=== PATIENT | male | born 1945 | race Caucasian/White ===

== ENCOUNTER → 2018-02-16 08:49 | Outpatient (CLI) | payer BC, MEDICARE, SELFPAY ==
--- NOTE | 2018-02-16 09:07 | XR_ITS ---
XR foot RT min 3V COMPARISON: None HISTORY: Right foot pain TECHNIQUE: AP lateral and oblique views FINDINGS: The tarsal bones metatarsals and phalanges appear intact. There is periarticular calcification or ossification adjacent to the base of the fifth metatarsal due to old injury. There are are arthritic changes at the first tarsometatarsal junction with mild sclerosis of the first and second cuneiform bones. The metatarsals and phalanges all appear intact. The plantar arch is normal. There is a small spur of the calcaneus at insertion of plantar tendon. IMPRESSION: Mild arthritic changes of the first tarsometatarsal articulation, possible posttraumatic changes base of fifth metatarsal, no other significantI abnormality noted.
== END ==
PROVIDERS: PCP Nurse Practitioner Family; Referring Provider Nurse Practitioner Family; Visit Provider Nurse Practitioner Family
DX: M79.671 Pain in right foot (principal)
CPT/HCPCS: 73630

== ENCOUNTER → 2018-04-19 07:29 | Outpatient (CLI) | payer BC, MEDICARE, SELFPAY ==
--- NOTE | 2018-04-19 07:31 | NM_ITS ---
History and Indications: Chest pain, shortness of breath and coronary artery disease Procedure: Patient received a 0.4 mg of intravenous Lexiscan, resting heart rate was 60 beats prominent, resting blood pressure 121/66, with Lexiscan maximum heart rate achieved was 85 bpm which is less than 85% of the maximum predicted heart rate and a blood pressure was 116/59. With Lexiscan patient complained of nausea. Electrocardiogram: Resting echocardiogram showed sinus rhythm, with Lexiscan there is less than 1.[address] segment depression noted from the baseline EKG. The EKG portion of the Lexiscan is nondiagnostic. Cardiac stress and resting SPECT images: Cardiac stress and rest SPECT images were obtained using technetium 99 Myoview 31.1 mCi at stress and 9.8 mCi at rest, gated SPECT further analysis of segmental wall motion and calculation of the ejection fraction also done. Cardiac stress and rest SPECT images show uniform myocardial activity without any segmental perfusion abnormality, computer derived ejection fraction is over 65% with no obvious regional wall motion abnormality, right ventricle is normal size and contractility. Conclusion: 1. The EKG portion of the Lexiscan Myoview is nondiagnostic. 2. No obvious scintigraphic evidence of reversible ischemia seen, computer derived ejection fraction is over 65% with no obvious regional wall motion abnormality. Right ventricle is normal size and contractility. 3. Normal Lexiscan Myoview study.
--- NOTE | 2018-04-19 07:31 | US_ITS ---
US Arterial Ankle Brachial Ind History: ITS.REASON: clauidcation, leg pain, wrist pain bilaterally with numbness and bilateral claudication ORDERING PHYSICIAN: Lalit Riggins MD PATIENT AGE: 72 years TECHNIQUE: Segmental pressures obtained of both right and left leg. These are compared to brachial blood pressure to yield index at each level sampled including summary CALISTA. The data sheets from the procedure are available in PACS FINDINGS Rest study only performed today No prior studies available for comparison. Blood pressures reported are in millimeters mercury. RIGHT LEG CALISTA = 1.1. RIGHT LEG TBI=0.9 Brachial BP: 117 Thigh BP: 143 Calf BP: 158 Ankle PT: 133 Ankle DP : 144 Digit =105 LEFT LEG CALISTA = 1.2 LEFT LEG TBI= 0.9 Brachial BPD: 119 Thigh BP: 131 Calf BP: 144 Ankle PT:138 Ankle DP: 149 Digit = 107 Pulses and waveforms: Normal IMPRESSION: The ABIs as reported above are within normal limits. Waveforms and pulses are also unremarkable.
--- NOTE | 2018-04-19 07:31 | CA_ITS ---
PROCEDURE: 2-D M-mode and color Doppler study INDICATIONS FOR THE TEST: Chest pain X COPD Heart Murmur Tobacco Smoking Palpitations Fatigue Syncope Edema HypertensionXDiabetes Mellitus Rheumatic Fever SOBXDOEXObesity HyperlipidemiaX Family History HD Additional History CAD,H/O CABG,NEGRITO,GAVIN PATIENT INFORMATION HEIGHT: 67 WEIGHT:209 GENDER: Male B/P:111/62 2-D/M-MODE INTERPRETATION: 2-D MEASUREMENTS OBSERVED VALUES IN CMS Right Ventricular Dimension (RVDd) 2.9 Interventricular Septum (Thickness)(IVsd) 1.0 Left Ventricular Internal Dimensions(LVIDd) 5.0 Left Ventricular Posterior Wall (Thickness)(LVPWd) .8 Aortic Root 2.9 Aortic Cusp Separation 1.4 Left Atrial Dimensions (LAD) 3.8 2D 1. Left atrium is qualitatively mildly enlarged, left ventricle is normal size, mild qualitative concentric left ventricular hypertrophy, visually estimated ejection fraction 55% with no obvious regional wall motion abnormality. 2. The right atrium is normal size, right ventricle is mildly enlarged with normal contractility. 3. The aortic valve is minimally thickened and fibrosed. 4. The mitral and tricuspid valve leaflets are minimally thickened. 5. The pulmonic valve is poorly visualized. 6. No significant pericardial effusion noted. DOPPLER INTERROGATION: Doppler interrogation of the aortic, mitral and tricuspid valvular presence of mild mitral and tricuspid regurgitation, tricuspid and jet velocity insufficient for calculation of the right ventricular systolic pressure, grade 1 diastolic dysfunction seen with tissue Doppler evidence of raised left atrial pressure. CONCLUSION: 1. Mildly enlarged left atrium, normal left ventricular size, visually estimated ejection fraction 55% with no obvious regional wall motion abnormality, grade 1 diastolic dysfunction seen with tissue Doppler evidence of raised left atrial pressure. 2. Mild mitral and tricuspid regurgitation 3. No significant pericardial effusion noted.
== END ==
PROVIDERS: Family Provider Nurse Practitioner Family; PCP Nurse Practitioner Family; Visit Provider Internal Medicine
DX: R94.31 Abnormal electrocardiogram [ECG] [EKG] (principal); R06.09 Other forms of dyspnea; I20.9 Angina pectoris, unspecified; E78.5 Hyperlipidemia, unspecified; I73.9 Peripheral vascular disease, unspecified; R20.0 Anesthesia of skin; R20.2 Paresthesia of skin
CPT/HCPCS: 78452; 93017; 93306; 93922; A9502; J2785

== ENCOUNTER → 2018-05-22 10:23 | Outpatient (CLI) | payer BC, MEDICARE, SELFPAY ==
--- NOTE | 2018-05-22 10:27 | MR_ITS ---
MR head/brain wo con Ordering Physician: Erika Sesay Patient Age: 72 years: Male HISTORY: ITS.REASON: HEMIPLEGIA Unable to control legs and move them at times Dizzy. Symptoms four months unable to control legs TECHNIQUE: Noncontrast MR brain : Precontrast Multiplanar FLAIR, T1, T2 weighted images along with axial diffusion/ADC imaging performed on 1.5 T. Siemens, MRI. . COMPARISON :None CT head without contrast FINDINGS Diffusion images reveal no acute or recent infarct/or ischemia. No territorial infarct. No mass lesions . Mild diffuse cerebral atrophy. Typical of age. Numerous scattered high signal deep white matter foci more numerous towards a follow-up region region. Tend to be be more subcortical distribution within centrum semiovale deep white matter. The largest of these deep white matter areas measuring 8 mm just superior to the basal ganglia lateral aspect fernandes radiata. Axial image 15 Posterior fossa unremarkable. CP angles are clear. Cranial nerve VII and VIII appear normal passing to respective IACs on this survey study. Mastoid air cells well-developed and clear. The cranial cervical junction appears satisfactory. There is spondylosis narrowing the spinal canal C2/3.. May want to consider performing a MR C-spine if any symptoms are symptoms referable to this region . Sella and suprasellar region ventricles and basal cisterns appear satisfactory. The minor dilatation lateral ventricles reflecting the cerebral atrophy. Prominent paranasal sinus disease. Left maxillary sinus. Near opacification with air-fluid level Right maxillary sinus with diffuse mucosal thickening with moderate air-fluid level. Frontal sinuses are clear. Mild mucosal thickening ethmoid air cells right more so than left. Sphenoid sinuses clear.. Deviation nasal septum convex to the right. Prominent engorgement of left nasal turbinates on this study IMPRESSION: 1. Chronic small vessel deep white matter ischemic gliotic changes. Scattered high signal foci most numerous at the subcortical regions towards follow-up 2. diffuse cerebral atrophy age-appropriate. 3. No territorial infarct. No mass lesion. No acute findings 4. Bilateral acute maxillary sinusitis. Air-fluid levels bilaterally. Near opacification left maxillary sinus . Deviation nasal septum to the right, engorgement of left nasal turbinates 5. cervical spondylosis & anatomy appears to yield spinal stenosis C2/3 & C3 level. This region incompletely imaged. If symptoms referable to the C-spine may want to consider MR C-spine to further evaluate
== END ==
PROVIDERS: Family Provider Nurse Practitioner Family; PCP Nurse Practitioner Family; Visit Provider Nurse Practitioner Family
DX: G81.94 Hemiplegia, unspecified affecting left nondominant side (principal)
CPT/HCPCS: 70551

== ENCOUNTER 2018-06-25 10:00 | Outpatient (RCR) | payer BC, MEDICARE, SELFPAY | END 2018-07-22 11:37 | disposition home or self-care (01) | LOC: PT 10:00 | PROVIDERS: Visit Provider Nurse Practitioner Family | DX: R29.898 Other symptoms and signs involving the musculoskeletal system (principal); M54.12 Radiculopathy, cervical region | CPT/HCPCS: 97010; 97012; 97014; 97110; 97140; 97163; G0283 ==

== ENCOUNTER → 2018-09-09 07:14 | Outpatient (CLI) | payer BC, MEDICARE, SELFPAY ==
[2018-09-09 08:39] LABS: Blood Urea Nitrogen 28 mg/dL (7-18); Creatinine,Serum 1.39 mg/dL (0.70-1.30); Estimated Glomerular Filt Rate 51 ml/min (>60); GFR (African American) 61 ML/MIN (>60)
== END ==
PROVIDERS: Visit Provider Nurse Practitioner Family
DX: R94.4 Abnormal results of kidney function studies (principal)
CPT/HCPCS: 36415; 82565; 84520

== ENCOUNTER → 2018-09-10 08:57 | Outpatient (CLI) | payer BC, MEDICARE, SELFPAY ==
--- NOTE | 2018-09-10 09:16 | CT_ITS ---
CT abdomen pelvis w con CLINICAL INDICATION: Left flank and left lower quadrant pain ITS.REASON: ABD PAIN,LT LOWER QUAD PAIN ORDERING PHYSICIAN: Erika Sesay PATIENT AGE: 72 years COMPARISON: None TECHNIQUE: Axial images obtained with sagittal and coronal reformats. All CT scans at the facility use one or more dose reduction, viz: automated exposure control, ma/kV adjustment per patient size (including targeted exams where dose is matched to indication, i.e. head), or iterative reconstruction technique. PROCEDURE: Oral Contrast: None IV Contrast: 75 mL's of Isovue 370. FINDINGS: Lower thorax: No acute finding . There has been a prior CABG with calcification of the yocha dehe coronary arteries and the bypass vessels. No focal liver lesion. No calcified gallstone. The spleen, adrenal glands, and pancreas have an unremarkable appearance. There is a nonobstructing 5 mm stone in the lower pole the left kidney, 8 mm stone in the upper pole the left kidney nonobstructing, 3 mm nonobstructing stone mid polar region right kidney. There is a 1.3 cm right renal cyst. No hydronephrosis. No ureteral calculi. Unremarkable appendix. There is diverticulosis of the descending and sigmoid colon but no evidence of diverticulitis. No acute bony anomalies. No pelvic mass or abnormal fluid collection or focal inflammatory change of the pelvis. IMPRESSION: 1. No acute abdominal or pelvic findings. 2. Nonobstructing bilateral renal calculi 3. Diverticulosis of the colon. No evidence of diverticulitis
== END ==
PROVIDERS: PCP Nurse Practitioner Family; Visit Provider Nurse Practitioner Family
DX: R10.32 Left lower quadrant pain (principal)
CPT/HCPCS: 74177; Q9967

== ENCOUNTER → 2018-09-16 17:16 | Outpatient (CLI) | payer BC, MEDICARE, SELFPAY ==
--- NOTE | 2018-09-16 17:29 | XR_ITS ---
XR ribs RT 2V HISTORY: Pain ITS.REASON: sprain of ribs ORDERING PHYSICIAN: Erika Sesay PATIENT AGE: 72 years Comparison: None FINDINGS: Multiple views of the right ribs were obtained. No fracture or dislocation. No lytic or blastic change. IMPRESSION: Negative right RIBS. If pain persists, consider follow-up exam in 7-[address] with 3-D reformats.
--- NOTE | 2018-09-16 17:29 | XR_ITS ---
XR ribs LT 2V HISTORY: Rib pain ITS.REASON: sprain of ribs ORDERING PHYSICIAN: Erika Sesay PATIENT AGE: 72 years Comparison: None FINDINGS: Multiple views of the Left ribs were obtained. No fracture or dislocation. No lytic or blastic change. IMPRESSION: Negative RIBS. If pain persists, consider follow-up exam in 7-[address] with 3-D reformats.
--- NOTE | 2018-09-16 17:29 | XR_ITS ---
XR chest 2V HISTORY: Left-sided chest pain, heart disease ITS.REASON: sprain of ribs ORDERING PHYSICIAN: Erika Sesay PATIENT AGE: 72 years COMPARISON: 05/12/2017 FINDINGS: There has been a prior CABG. Chronic changes are present in the left lung base. No acute infiltrate. Degenerative changes are present in the right AC joint and thoracic spine. On the lateral view and one similar nodule overlies the superior aspect of the T6 vertebral body not readily apparent on the frontal view. IMPRESSION: 1. No acute finding. 2. 1 cm nodule overlies the superior aspect of T6. This is indeterminate. Chest CT may be of further value. Follow-up is recommended
[2018-09-16 17:44] LABS: Basophils # 0.1 K/mm3 (0-0.2); Basophils % 0.8 % (0.1-2.0); Eosinophils # 0.2 K/mm3 (0.0-0.4); Eosinophils % 3.1 % (0.1-12.0); Hematocrit 40.5 % (42.0-52.0); Hemoglobin 13.2 g/dL (14.1-18.0); Lymphocytes # 1.3 K/mm3 (0.7-4.5); Lymphocytes % 18.1 % (10-50); Mean Corpuscular HGB Conc 32.6 g/dL (31.8-35.4); Mean Platelet Volume 7.7 fl (7.4-10.4); Monocytes # 0.3 K/mm3 (0.1-1.0); Monocytes % 4.9 % (1.7-9.3); Neutrophils % 73.1 % (37.0-80.0); Platelet Count 272 K/mm3 (142-424); Red Blood Count 4.55 M/mm3 (4.60-6.20); White Blood Count 6.9 K/mm3 (4.8-10.8)
[2018-09-16 19:33] LABS: Alanine Aminotransferase 21 U/L (12-78); Albumin Level 4.1 gm/dL (3.4-5.0); Albumin/Globulin Ratio 1.6 (1.1-1.8); Alkaline Phosphatase 61 U/L (46-116); Aspartate Amino Transferase 11 U/L (15-37); Bilirubin,Total 0.3 mg/dL (0.2-1.0); Blood Urea Nitrogen 28 mg/dL (7-18); Calcium 9.3 mg/dL (8.5-10.1); Carbon Dioxide 26 mmol/L (21.0-32.0); Chloride 107 mmol/L (98-107); Creatinine,Serum 1.24 mg/dL (0.70-1.30); Estimated Glomerular Filt Rate 58 ml/min (>60); GFR (African American) 70 ML/MIN (>60); Globulin 2.6 gm/dl (1.3-3.2); Glucose 109 mg/dL (74-106); Prostate Specific Ag Screen 1.4 ng/mL (0.0-4.0); Sodium 144 mmol/L (136-145); Total Protein,Serum 6.7 gm/dL (6.4-8.2)
== END ==
PROVIDERS: Visit Provider Nurse Practitioner Family
DX: R10.32 Left lower quadrant pain (principal); N40.1 Benign prostatic hyperplasia with lower urinary tract symptoms
CPT/HCPCS: 36415; 71046; 71100; 80053; 85025; G0103

== ENCOUNTER 2019-02-11 07:59 | Day surgery (SDC) | payer BC, SELFPAY ==
[2019-02-10 09:12] VITALS: BMI 31.6
[2019-02-11 08:19] VITALS: BP 127/62; PULSE 56; RESP 18; TEMP 36.4; O2SAT 96
--- NOTE | 2019-02-11 08:37 | P.PN_ITS ---
[facility] Anesthesia Checklist - Patient Identification Patient Identification: Arm Band - Structural Data Admitted From: Home Planned Operative Procedure/s: cystoscopy with bladder biopsy Consent for Planned Operative Procedure(s) Verified: Yes Verified Documents: Surgical Consent, History and Physical - NPO Status Verified Time NPO: 00:00 - Additional verifications Anesthesia Reactions: No - Airway Assessment C-Spine Mobility Assessed: Yes (mp2) TMJ Mobility Assessed: Yes Dentition: Good Dentition - Neurological Assessment Level of Consciousness: Awake, Alert - Anesthesia Plan Anesthesia Risk discussed: Yes Anesthesia Plan: Verified ASA Class: III Anesthesia Type: MAC [facility] History I have reviewed the patient's past medical history: Yes Medical History: Reports:: Carotid Stenosis, Coronary Artery Disease, Gastroesophageal Reflux Disease(GERD), Hyperlipidemia, Hypertension, Kidney Stones, Transient Ischemic Attacks (TIA) Denies:: Cancer, Diabetes Mellitus Type 1, Diabetes Mellitus Type 2, Internal Pacemaker, MRSA, Seizures *Have you ever received a pneumonia vaccine?: Yes *Have you received a flu vaccine this season?: Yes Other Medical History: Reports: Arthritis. Denies: Blood Transfusion Reaction Laterality Cases: Left: Arthroscopy Shoulder Other Surgeries: Yes: Angioplasty, CABG, Colon Resection, Coronary Stent, Other (acdf). No: Pacemaker Amputation: No Fractures: No - *Social History Educational Level: Completed High School Smoking Status: Never smoker Alcohol Intake: never Alcohol Intake Frequency:: other Substance Use Type: denies use *Occupational Status:: employed Housing: house Household Members: spouse *Travel in the last 8 weeks: None - Psychiatric History Expresses thoughts of harming self/others: None Suicide Plan Description: No Plan Family Hx:: Coronary Artery Disease
[2019-02-11 10:45] VITALS: BP 113/65; PULSE 55; RESP 18; TEMP 36.4; O2SAT 95
[2019-02-11 11:00] VITALS: BP 118/59; PULSE 58; RESP 16; TEMP 36.4; O2SAT 96
[2019-02-11 11:15] VITALS: BP 137/87; PULSE 55; RESP 16; TEMP 36.4; O2SAT 96
[2019-02-11 11:29] VITALS: BP 132/80; PULSE 60; RESP 16; TEMP 36.6; O2SAT 97
--- NOTE | 2019-02-11 13:42 | HMH.OPNOTE ---
Date of procedure: 02/11/19 Pre-op Diagnosis:: Gross painless hematuria Post-op Diagnosis:: Hematuria likely secondary to BPH Procedure performed:: Cystoscopy Surgeon:: Que Andino MD CASHIER GENERAL:: Mikey Aj Anesthesia: MAC Estimated blood loss (mL): 0 Clinical Note:: Patient with history of urolithiasis. He had episode of gross painless hematuria. He had a CT scan which showed some small bilateral renal stones. He does have a previous significant smoking history. He is also on Plavix. Resents today for cystoscopy for further evaluation of his hematuria. Operative findings:: Significant prostate enlargement with trilobar hypertrophy and moderate median lobe. No evidence of bladder tumor. Operative note:: After adequate general anesthesia he was carefully placed in the lithotomy position. He was prepped and draped in standard manner. He had very mild meatal stenosis. The 22 [place] cystoscopy sheath was manipulated through this with care. No formal dilation was performed. The remainder of the urethra and prostatic were unremarkable other than significant trilobar hypertrophy and a large median lobe. The prostatic urethra was also quite vascular. The bladder was inspected entirely. There was mild trabeculations. Ureteral orifice ease were situated in the normal position and effluxed clear urine. The bladder was inspected with both 30 and 70 degree lenses. There was no evidence of bladder tumors. It was withdrawn. Xylocaine jelly was instilled in the urethra. Likely his source of bleeding was prostatic as well as combination with anticoagulation therapy. Condition: stable Disposition: same day Specimens:: None Complications:: None. I have placed him on finasteride 5 mg/day. He will follow-up in 2 months.
--- NOTE | 2019-02-11 13:46 | P.OP_ITS ---
Date of procedure: 02/11/19 Pre-op Diagnosis:: Gross painless hematuria Post-op Diagnosis:: Hematuria likely secondary to BPH Procedure performed:: Cystoscopy Surgeon:: Que Andino MD PARK KEEPER:: Mikey Aj Anesthesia: MAC Estimated blood loss (mL): 0 Clinical Note:: Patient with history of urolithiasis. He had episode of gross painless hematur ia. He had a CT scan which showed some small bilateral renal stones. He does have a previous significant smoking history. He is also on Plavix. Resents today for cystoscopy for further evaluation of his hematuria. Operative findings:: Significant prostate enlargement with trilobar hypertrophy and moderate median lobe. No evidence of bladder tumor. Operative note:: After adequate general anesthesia he was carefully placed in the lithotomy position. He was prepped and draped in standard manner. He had very mild meatal stenosis. The 22 [place] cystoscopy sheath was manipulated through this with care. No formal dilation was performed. The remainder of the urethra and prostatic were unremarkable other than significant trilobar hypertrophy and a large median lobe. The prostatic urethra was also quite vascular. The bladder was inspected entirely. There was mild trabeculations. Ureteral orifice ease were situated in the normal position and effluxed clear urine. The bladder was inspected with both 30 and 70 degree lenses. There was no evidence of bladder tumors. It was withdrawn. Xylocaine jelly was instilled in the urethra. Likely his source of bleeding was prostatic as well as combination with anticoagulation therapy. Condition: stable Disposition: same day Specimens:: None Complications:: None. I have placed him on finasteride 5 mg/day. He will follow-up in 2 months.
[2019-02-11 14:55] VITALS: TEMP 43
== END 2019-02-11 11:29 | disposition home or self-care (01) ==
LOC: OR 08:00
PROVIDERS: PCP Nurse Practitioner Family; Visit Provider Urology
PROC: 0TBB8ZX Excision of Bladder, Via Natural or Artificial Opening Endoscopic, Diagnostic (ICD-10-PCS; CPT 52204; principal; 2019-02-11 09:45)
DX: R31.0 Gross hematuria (principal); Z87.442 Personal history of urinary calculi; Z79.01 Long term (current) use of anticoagulants; N40.0 Benign prostatic hyperplasia without lower urinary tract symptoms; N35.911 Unspecified urethral stricture, male, meatal
CPT/HCPCS: 52000; 96374

== ENCOUNTER → 2019-05-03 11:55 | Outpatient (CLI) | payer BC, SELFPAY ==
--- NOTE | 2019-05-03 12:08 | XR_ITS ---
PROCEDURE: XR FOOT RT 2V CLINICAL INDICATION: PAIN Bruising and pain COMPARISON: No exams were available for comparison FINDINGS: There is a nondisplaced oblique fracture involving the mid distal shaft of the 5th metatarsal. Mild chondrocalcinosis of the 2nd metatarsophalangeal joint. Mild osteoarthritic change of the 1st metatarsophalangeal joint and tarsal metatarsal joint. There is some minimal plantar fascia calcifications nonspecific but could be seen with plantar fasciitis. There is a prominent os cuboid IMPRESSION: Nondisplaced oblique fracture 5th metatarsal Degenerative changes Dictated by: Bebeto Almanza MD 05/03/2019 12:27 Signed by: <Electronically signed by Bebeto Almanza MD in [place]> 05/03/2019 12:27
== END ==
PROVIDERS: PCP Nurse Practitioner Family; Referring Provider Nurse Practitioner Family; Visit Provider Nurse Practitioner Family
DX: M79.671 Pain in right foot (principal)
CPT/HCPCS: 73620

== ENCOUNTER → 2019-05-27 15:02 | Outpatient (CLI) | payer BC, SELFPAY ==
--- NOTE | 2019-05-27 15:06 | XR_ITS ---
PROCEDURE: XR FOOT WT BEARING RT 3V CLINICAL INDICATION: foot pain Follow-up fracture COMPARISON: [id number] XR foot RT min 3V from 02/16/2018 XR FOOT RT 2V from 05/03/2019 FINDINGS: There is a cast in place. Nondisplaced oblique fracture once again noted involving the mid distal aspect of the 5th metatarsal. Fracture line is still visible. Good alignment. There are degenerative changes of the midfoot Other findings:None. IMPRESSION: Overall no change nondisplaced oblique fracture of the mid to distal aspect of the 5th metatarsal Dictated by: Bebeto Almanza MD 05/27/2019 16:18 Electronically signed by Bebeto Almanza MD in [place] 05/27/2019 16:18
== END ==
PROVIDERS: PCP Family Medicine; Visit Provider Podiatrist
DX: S92.354D Nondisplaced fracture of fifth metatarsal bone, right foot, subsequent encounter for fracture with routine healing (principal)
CPT/HCPCS: 73630

== ENCOUNTER → 2019-06-17 14:23 | Outpatient (CLI) | payer BC, SELFPAY ==
--- NOTE | 2019-06-17 14:28 | XR_ITS ---
PROCEDURE: XR FOOT WT BEARING RT 3V CLINICAL INDICATION: Fracture follow up COMPARISON: [id number] XR foot RT min 3V from 02/16/2018 XR FOOT RT 2V from 05/03/2019 XR FOOT WT BEARING RT 3V from 05/27/2019 FINDINGS: Nondisplaced oblique fracture once again noted involving the mid distal shaft of the 5th metatarsal. Fracture line is still visible. There may be some mild callus formation medially. There are mild degenerative changes of the midfoot. Other findings:None. IMPRESSION: The nondisplaced oblique fracture of the 5th metatarsal is once again noted. There may be some callus formation developing medially Dictated by: Bebeto Almanza MD 06/17/2019 15:57 Electronically signed by Bebeto Almanza MD in [place] 06/17/2019 15:57
== END ==
PROVIDERS: PCP Nurse Practitioner Family; Visit Provider Podiatrist
DX: S92.354A Nondisplaced fracture of fifth metatarsal bone, right foot, initial encounter for closed fracture (principal)
CPT/HCPCS: 73630

== ENCOUNTER → 2019-07-02 09:37 | Outpatient (CLI) | payer BC, SELFPAY ==
--- NOTE | 2019-07-02 09:41 | XR_ITS ---
PROCEDURE: XR FOOT WT BEARING RT 3V CLINICAL INDICATION: fracture follow up COMPARISON: [id number] XR foot RT min 3V from 02/16/2018 XR FOOT RT 2V from 05/03/2019 XR FOOT WT BEARING RT 3V from 05/27/2019 XR FOOT WT BEARING RT 3V from 06/17/2019 FINDINGS: Nondisplaced oblique fracture once again noted involving the mid distal aspect of the shaft of the 5th metatarsal. The fracture line appears somewhat less distinct and may be due to early healing. Fracture remains nondisplaced IMPRESSION: No significant change nondisplaced 5th metatarsal fracture Dictated by: Bebeto Almanza MD 07/02/2019 14:12 Electronically signed by Bebeto Almanza MD in [place] 07/02/2019 14:12
== END ==
PROVIDERS: PCP Nurse Practitioner Family; Visit Provider Podiatrist
DX: S92.354A Nondisplaced fracture of fifth metatarsal bone, right foot, initial encounter for closed fracture (principal)
CPT/HCPCS: 73630

== ENCOUNTER → 2019-07-22 14:41 | Outpatient (CLI) | payer BC, SELFPAY ==
--- NOTE | 2019-07-22 14:44 | XR_ITS ---
PROCEDURE: XR FOOT WT BEARING RT 3V CLINICAL INDICATION: fracture follow up Follow-up fracture COMPARISON: XR FOOT RT 2V from 05/03/2019 XR FOOT WT BEARING RT 3V from 05/27/2019 XR FOOT WT BEARING RT 3V from 06/17/2019 XR FOOT WT BEARING RT 3V from 07/02/2019 FINDINGS: Healing nondisplaced oblique fracture involves the mid distal shaft of the 5th metatarsal. The fracture line is somewhat less distinct compared to the previous study but is still visible. Incidental note made of degenerative changes of the foot Other findings:None. IMPRESSION: Healing nondisplaced oblique fracture mid and distal shaft of the 5th metatarsal Dictated by: Bebeto Almanza MD 07/22/2019 16:28 Electronically signed by Bebeto Almanza MD in [place] 07/22/2019 16:28
== END ==
PROVIDERS: PCP Family Medicine; Visit Provider Podiatrist
DX: S92.354D Nondisplaced fracture of fifth metatarsal bone, right foot, subsequent encounter for fracture with routine healing (principal)
CPT/HCPCS: 73630

== ENCOUNTER → 2019-12-25 12:38 | Outpatient (CLI) | payer BC, MEDICARE, SELFPAY ==
--- NOTE | 2019-12-25 12:43 | MR_ITS ---
PROCEDURE: MR HEAD/BRAIN WO/W CON CLINICAL INDICATION: NEW DAILY PERSISTENT HEADACHE Left-sided headache, constant headache COMPARISON: BRAINWO MR head/brain wo con from 05/22/2018 TECHNIQUE: Routine multiplanar multi echo sequences are performed without and with gadolinium enhancement. FINDINGS: There is mild generalized atrophy. Scattered periventricular and subcortical T2 white matter hyperintensities are present which does not appear significantly changed. No midline shift or mass effect. No evidence of acute infarction or intracranial hemorrhage. No enhancing lesions are evident. The cerebellopontine angles, cerebellum, and brainstem are unremarkable. No mastoid effusion or sinus air-fluid level. The the pituitary, optic chiasm, corpus callosum, and craniocervical junction have an unremarkable appearance. There is spondylosis of the cervical spine with postsurgical changes from anterior cervical disc fusion at C4 and C5. There is mild bulging disc at C3-C4 with narrowing of the canal. IMPRESSION: No acute intracranial findings with no significant change compared to the previous exam. Postsurgical and degenerative changes of the cervical spine Dictated by: Bebeto Almanza MD 12/27/2019 09:38 Electronically signed by Bebeto Almanza MD in [place] 12/27/2019 09:38
== END ==
PROVIDERS: PCP Family Medicine; Visit Provider Nurse Practitioner Family
DX: G44.52 New daily persistent headache (NDPH) (principal)
CPT/HCPCS: 70553; A9576

== ENCOUNTER → 2020-01-14 09:27 | Outpatient (CLI) | payer OTHER, BC, MEDICARE, SELFPAY ==
--- NOTE | 2020-01-14 09:34 | XR_ITS ---
PROCEDURE: XR SHOULDER RT MIN 2V CLINICAL INDICATION: right shoulder pain COMPARISON: No exams were available for comparison FINDINGS: There are moderate osteoarthritic changes of the acromioclavicular joint with some surrounding periarticular calcification/chondrocalcinosis. There are mild osteoarthritic changes the glenohumeral joint also with some mild chondrocalcinosis. A small calcific density is present inferior to the glenoid etiology undetermined. No acute fracture. 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
== END ==
PROVIDERS: PCP Nurse Practitioner Family; Visit Provider Orthopaedic Surgery
DX: M25.511 Pain in right shoulder (principal)
CPT/HCPCS: 73030

== ENCOUNTER 2020-01-30 11:00 | Outpatient (RCR) | payer BC, MEDICARE, SELFPAY | END 2020-02-25 08:40 | disposition home or self-care (01) | LOC: PT.CARL 11:00 | PROVIDERS: PCP Nurse Practitioner Family; Visit Provider Nurse Practitioner Family | DX: M54.2 Cervicalgia (principal) | CPT/HCPCS: 97110; 97140; 97163 ==

== ENCOUNTER 2020-07-26 09:00 | Outpatient (RCR) | payer MEDICARE, BC, SELFPAY | END 2020-08-12 16:28 | disposition home or self-care (01) | LOC: PT.CARL 09:00 | PROVIDERS: PCP Nurse Practitioner Family; Visit Provider Nurse Practitioner Family | DX: M54.2 Cervicalgia (principal) | CPT/HCPCS: 97010; 97014; 97110; 97140; 97163; G0283 ==

== ENCOUNTER 2021-04-24 16:41 | Emergency (ER) | payer MEDICARE, BC, SELFPAY ==
[2021-04-24 18:00] VITALS: BP 112/65; PULSE 68; RESP 18; TEMP 37; O2SAT 98; BMI 31.0
--- NOTE | 2021-04-24 18:22 | HMH.EDUTC ---
[facility] [place] Disposition Clinical Impression: Exposure to COVID-19 virus Disposition: Home, Self-Care Condition on Discharge: Good Instructions: DI for COVID-19 (Suspected or Confirmed ), COVID-19: Protecting Yourself When You're at High Risk, Preventing the Spread of Coronavirus Discharge Instructions Additional Instructions: covid swab was sent to lab, call later today for results. self isolate until test results are known to be negative Referrals: Erika Sesay [Primary Care Provider] - Time of Disposition: 18:25 Medical Decision Making - [place] Inquiry Pt receiving controlled substance: No Vital Signs: 04/24/21 18:00 Temperature 98.6 F Temperature Source Oral Pulse Rate [Right Brachial] 68 Respiratory Rate 18 Blood Pressure [Right Arm] 112/65 Blood Pressure Mean [Right Arm] 80 Blood Pressure Source [Right Arm] Automatic Cuff Blood Pressure Position [Right Arm] Sitting 02 Sat by Pulse Oximetry 98 Oxygen Delivery Method Room Air Orders (Tests/Meds): ORDERS Category Date Time Status Covid-19 Nasal PCR ([facility]) Routine Lab 04/24/21 18:02 Received [facility] [place] HPI - General Chief complaint: Urgent [facility] Stated complaint: covid test Time Seen by Provider: 04/24/21 18:23 Mode of Arrival: Ambulatory Source of Information: Patient Limitations: No Limitations Description of Symptoms (Recalled from Triage Doc. by RN): COVID TEST D/T EXPOSURE HEENT Symptoms (Recalled from RN notes): No Resp Symptoms (Recalled from RN notes): No Skin Symptoms (Recalled from RN notes): No MS Symptoms (Recalled from RN notes): No Functional Status (Recalled from RN notes): WNL - History of Present Illness Provider Complaint: 75 yr old male presents for covid test, was exposed last pm no symptoms - Related Data Home Medications Medication Instructions Recorded Confirmed clopidogrel 75 mg tablet 75 mg PO DAILY tab 10/22/17 01/14/20 multivitamin 1 tab PO QAM 10/22/17 01/14/20 naproxen sodium 220 mg tablet 220 mg PO Q12H 10/22/17 01/14/20 omeprazole 40 mg capsule,delayed 40 mg PO ONCE 10/22/17 01/14/20 release tamsulosin 0.4 mg capsule 0.4 mg PO DAILY 10/22/17 01/14/20 fenofibrate nanocrystallized 48 mg 48 mg PO DAILY tab 01/29/18 01/14/20 tablet metoprolol tartrate 25 mg tablet 12.5 mg PO BID tab 01/29/18 01/14/20 acetaminophen 500 mg tablet 500 mg PO BID PRN tab 04/16/18 01/14/20 aspirin 81 mg tablet,delayed 81 mg PO DAILY tab 04/16/18 01/14/20 release fluticasone propionate 50 50 mcg INTRANASAL DAILY g 04/16/18 01/14/20 mcg/actuation nasal spray,suspension rosuvastatin 20 mg tablet 20 mg PO DAILY tab 04/16/18 01/14/20 finasteride 5 mg tablet 5 mg PO DAILY #90 tab 05/06/19 01/14/20 Allergies Allergy/AdvReac Type Severity Reaction Status Date / Time clarithromycin Allergy Unknown Verified 01/14/20 10:29 [CLARITHROMYCIN] morphine [MORPHINE] Allergy Unknown Verified 01/14/20 10:29 sulfamethoxazole Allergy Unknown Verified 01/14/20 10:29 [From BACTRIM] trimethoprim [From BACTRIM] Allergy Unknown Verified 01/14/20 10:29 - Worker's Comp Is this a Worker's Comp case?: No [facility] History - Hepatitis A Screen Drug use history?: No High risk sexual behaviors?: No History of sexually transmitted infection?: No Currently employed?: No Childcare worker?: No Do you have indoor plumbing?: Yes Do you have electricity?: Yes Attestation statement:: This patient has been screened for Hepatitis A risk factors. I have reviewed the patient's past medical history: Yes Medical History: Reports:: Aneurysm, Atherosclerotic Heart Disease, Carotid Stenosis, Coronary Artery Disease, Gastroesophageal Reflux Disease(GERD), Hyperlipidemia, Hypertension, Kidney Stones, Transient Ischemic Attacks (TIA) Denies:: Cancer, Diabetes Mellitus Type 1, Diabetes Mellitus Type 2, Internal Pacemaker, Lung Disease, MRSA, Seizures Other Medical History: Reports: Arthritis. Denies: Blood Transfusion Reaction
[2021-04-24 18:26] VITALS: BP 112/65; PULSE 68; RESP 18; TEMP 37; O2SAT 98
== END 2021-04-24 18:34 | disposition home or self-care (01) ==
PROVIDERS: Emergency Provider Nurse Practitioner Family; PCP Nurse Practitioner Family
DX: Z20.822 Contact with and (suspected) exposure to COVID-19 (principal); I25.10 Atherosclerotic heart disease of native coronary artery without angina pectoris; K21.9 Gastro-esophageal reflux disease without esophagitis; Z88.2 Allergy status to sulfonamides; Z88.5 Allergy status to narcotic agent; Z79.899 Other long term (current) drug therapy
CPT/HCPCS: G0463; 99202; U0003

== ENCOUNTER → 2021-05-05 12:13 | Outpatient (CLI) | payer MEDICARE, BC, SELFPAY ==
[2021-05-05] VITALS (10 sets, daily range): BP systolic 113–136; BP diastolic 57–74; PULSE 48–63; RESP 16–18; TEMP 36.2–36.9; O2SAT 95–97
== END ==
PROVIDERS: PCP Nurse Practitioner Family; Visit Provider Nurse Practitioner Family
DX: U07.1 COVID-19 (principal)
CPT/HCPCS: 96365

== ENCOUNTER 2023-05-13 22:50 | Inpatient (IN) | payer MEDICARE, BC, SELFPAY ==
[2023-05-13 22:50] VITALS: BP 146/79; PULSE 94; RESP 19; TEMP 38.8; O2SAT 97; BMI 29.7
--- NOTE | 2023-05-13 22:55 | XR_ITS ---
PROCEDURE INFORMATION: Exam: XR Chest Exam date and time: 05/13/2023 10:53 PM Age: 77 years old Clinical indication: Pain; Chest pressure; Additional info: Cp TECHNIQUE: Imaging protocol: Radiologic exam of the chest. Views: 1 view. COMPARISON: CR CXR2V XR chest 2V 09/16/2018 5:35 PM FINDINGS: Lungs: Low lung volumes without definite focal airspace consolidation. Pleural spaces: No pleural effusion. No pneumothorax. Heart/Mediastinum: Stable cardiomediastinal silhouette. Bones/joints: Median sternotomy. Metallic plate in the cervical spine. Rotator cuff repair on the left. IMPRESSION: Low lung volumes without definite focal airspace consolidation.
[2023-05-13 23:00] VITALS: BP 148/74; PULSE 97; RESP 22; O2SAT 96
--- NOTE | 2023-05-13 23:18 | ECG_ITS ---
APPROVED REPORT Exam: Resting ECG HR:95 bpm ECG Measurements Heart Rate 95 AXES AR 204 P 35 QRSd 118 QRS -1 QT 348 T 66 QTc 401 Conclusion SINUS RHYTHM INDETERMINATE AXIS PATTERN CONSISTENT WITH PULMONARY DISEASE MODERATE INTRAVENTRICULAR CONDUCTION DELAY [110+ ms QRS DURATION] MODERATE ST DEPRESSION [0.05+ mV ST DEPRESSION] ABNORMAL ECG UNCONFIRMED REPORT Electronically signed by : Mikey Wallace MD 05/14/2023 07:09:35
--- NOTE | 2023-05-13 23:23 | PC.NURSE ---
Dr. Riggins paged and on phone with Dr. Lainez at this time
[2023-05-13 23:30] VITALS: BP 146/78; PULSE 103; RESP 22; O2SAT 98
[2023-05-13 23:30] LABS: Chloride 106 mmol/L (98-107)
[2023-05-13 23:31] LABS: Sodium 141 mmol/L (136-145)
[2023-05-13 23:32] LABS: Basophils % 0.3 % (0.1-2.0); Eosinophils # 0.2 K/mm3 (0.0-0.4); Eosinophils % 1.8 % (0.1-12.0); Hematocrit 42.3 % (42.0-52.0); Hemoglobin 13.2 g/dL (14.1-18.0); Lymphocytes # 0.7 K/mm3 (0.7-4.5); Lymphocytes % 5.7 % (10-50); Mean Corpuscular HGB Conc 31.3 g/dL (31.8-35.4); Mean Corpuscular Hemoglobin 26.4 pg (27.0-31.2); Mean Corpuscular Volume 84.3 fl (80-94); Mean Platelet Volume 8.7 fl (7.4-10.4); Monocytes # 0.4 K/mm3 (0.1-1.0); Monocytes % 2.7 % (1.7-9.3); Neutrophils # 11.5 K/mm3 (1.8-7.8); Neutrophils % 89.5 % (37.0-80.0); Platelet Count 238 K/mm3 (142-424); Red Blood Count 5.02 M/mm3 (4.60-6.20); Red Cell Distribution Width 15.2 % (11.5-17.5); White Blood Count 12.8 K/mm3 (4.8-10.8)
[2023-05-13 23:34] LABS: Alanine Aminotransferase 27 U/L (12-78); Albumin Level 3.9 g/dl (3.5-5.0); Albumin/Globulin Ratio 1.4 (1.1-1.8); Alkaline Phosphatase 76 U/L (38-126); Aspartate Amino Transferase 45 U/L (17-59); Bilirubin,Total 0.5 mg/dl (0.2-1.3); Blood Urea Nitrogen 28 mg/dl (9-20); Calcium 9.3 mg/dl (8.4-10.2); Carbon Dioxide 26 mmol/L (22.0-30.0); Creatinine Clearance Estimated 60 mL/min (50-200); Estimated Glomerular Filt Rate 54 ml/min (>60); GFR (African American) 65 ML/MIN (>60); Globulin 2.7 g/dL (1.3-3.2); Glucose 111 mg/dl (74-100); Total Protein,Serum 6.6 g/dl (6.3-8.2)
[2023-05-13 23:35] LABS: MANUAL DIFFERENTIAL MANUAL DIFFERENTIAL (MANUAL DIFF)
[2023-05-13 23:47] LABS: D-Dimer 1.05 ug/mL (0.0-0.5); Lymphocytes % 11 % (10-50); Monocytes % 4 % (2-9); Neutrophils % 85 % (42-76); Platelet Estimate Normal; RBC Morphology Normal; Total Cells Counted 100; Troponin I < 0.01 ng/ml (0.00-0.034)
--- NOTE | 2023-05-13 23:51 | CT_ITS ---
PROCEDURE INFORMATION: Exam: CTA Chest With Contrast Exam date and time: 05/14/2023 12:09 AM Age: 77 years old Clinical indication: Fever; Additional info: Elevated d-dimer, nausea, fever, abnormal ekg TECHNIQUE: Imaging protocol: Computed tomographic angiography of the chest with contrast. Exam focused on the arteries. 3D rendering (Not supervised by radiologist): MIP and/or 3D reconstructed images were created by the technologist. Radiation optimization: All CT scans at this facility use at least one of these dose optimization techniques: automated exposure control; mA and/or kV adjustment per patient size (includes targeted exams where dose is matched to clinical indication); or iterative reconstruction. Contrast material: ISOVUE; Contrast volume: 70 ml; Contrast route: INTRAVENOUS (IV); REPORTING DATA: Count of CT and Cardiac NM exams in prior 12 months: This patient has received 0 known CTs and 0 known cardiac nuclear medicine studies in the 12 months prior to the current study. COMPARISON: CR XR CHEST PORTABLE 05/13/2023 10:53 PM FINDINGS: Pulmonary arteries: Normal. No pulmonary emboli. Aorta: Unremarkable. No aortic aneurysm. No aortic dissection. Lungs: There is patchy atelectasis at the lung bases. Pleural spaces: Unremarkable. No pneumothorax. No pleural effusion. Heart: Unremarkable. No cardiomegaly. No pericardial effusion. Coronary arteries: There is moderate coronary atherosclerotic disease/calcification. Lymph nodes: Unremarkable. No enlarged lymph nodes. Bones/joints: The patient is status post median sternotomy. There is partially visualized cervical spine surgical hardware. Soft tissues: Unremarkable. IMPRESSION: No evidence for clinically relevant pulmonary arterial filling defect, dense parenchymal consolidation, pleural effusion, or pneumothorax. No acute intrathoracic anomaly.
[2023-05-14] VITALS (20 sets, daily range): BP systolic 87–145; BP diastolic 41–70; PULSE 65–100; RESP 16–22; TEMP 36.6–37.8; O2SAT 90–98; BMI 30.1; BMI 30.9
--- NOTE | 2023-05-14 00:36 | HMH.EDGENADL ---
Discharge Plan Disposition Patient Disposition: Admitted Chief Complaint: Abdominal Pain Clinical Impressions Clinical Impression: Acute UTI, Abnormal ECG Discharge ED Provider: Quentin Lainez General Adult HPI General Chief complaint: Abdominal Pain Stated complaint: CP Time Seen by Provider: 05/13/23 22:57 Mode of Arrival: EMS Source of Information: EMS Limitations: No Limitations Description of Symptoms (Recalled from ER Triage Doc. by RN): 77 M presents from home via EMS r/t sudden onset of epigastric pain with nausea and vomiting after eating cottage cheese and fruit. No other complaints at this time. 20g via LAC per EMS. History of Present Illness HPI narrative: 77-year-old male history of coronary artery disease status post CABG 25 years ago, stents within the last couple of years presents with acute onset nausea and generalized shaking. This happened this evening. He specifically denies chest pain. Reports some abdominal discomfort but is unable to localize it. No vomiting. Denies shortness of breath. Patient is febrile on arrival. Related Data Home Medications Medication Instructions Recorded Confirmed clopidogrel 75 mg tablet (Plavix) 75 mg PO DAILY heart. 10/22/17 01/14/20 multivitamin 1 tab PO QAM Supplement 10/22/17 01/14/20 naproxen sodium 220 mg tablet 220 mg PO Q12H Pain 10/22/17 01/14/20 (Aleve) omeprazole 40 mg capsule,delayed 40 mg PO ONCE stomach 10/22/17 01/14/20 release tamsulosin 0.4 mg capsule 0.4 mg PO DAILY prostate 10/22/17 01/14/20 fenofibrate nanocrystallized 48 mg 48 mg PO DAILY Cholesterol 01/29/18 01/14/20 tablet (Tricor) metoprolol tartrate 25 mg tablet 12.5 mg PO BID bp 01/29/18 01/14/20 acetaminophen 500 mg tablet 500 mg PO BID PRN pain 04/16/18 01/14/20 (Tylenol Extra Strength) aspirin 81 mg tablet,delayed 81 mg PO DAILY heart. 04/16/18 01/14/20 release (Adult Low Dose Aspirin) fluticasone propionate 50 50 mcg intranasal DAILY Sinus 04/16/18 01/14/20 mcg/actuation nasal infection spray,suspension (Flonase Allergy Relief) rosuvastatin 20 mg tablet (Crestor) 20 mg PO DAILY Cholesterol 04/16/18 01/14/20 finasteride 5 mg tablet 5 mg PO DAILY postate #90 tabs 05/06/19 01/14/20 Allergies Allergy/AdvReac Type Severity Reaction Status Date / Time clarithromycin Allergy Unknown Verified 05/05/21 12:40 [CLARITHROMYCIN] morphine [MORPHINE] Allergy Unknown Verified 05/05/21 12:40 sulfamethoxazole Allergy Unknown Verified 05/05/21 12:40 [From BACTRIM] trimethoprim [From BACTRIM] Allergy Unknown Verified 05/05/21 12:40 [facility] Disclaimer: The information contained in this section may have been updated after the patient was seen, as this information can be updated by other users. Social History Smoking Status: Never smoker second hand exposure: No alcohol intake: never substance use type: denies use current occupational status: employed Travel in the last 8 weeks: None household members: spouse housing: house caffeine: No ROS Obtained: Yes All systems reviewed & no additional complaints except as documented Physical Exam General General appearance: alert and in no apparent distress Head Head exam: atraumatic and normocephalic Eye Eye exam: Present normal appearance, PERRL and EOMI ENT ENT exam: Present normal oropharynx and normal external ear exam Neck Neck exam: Present normal inspection and full ROM Chest Chest inspection: Present normal inspection and symmetric chest wall rise; Absent tenderness Respiratory Respiratory exam: Present normal lung sounds bilaterally; Absent respiratory distress Cardiovascular Cardiovascular exam: Present normal rhythm and tachycardia Abdominal Exam Abdominal exam: Present soft; Absent distention, tenderness or guarding Extremities Exam Extremities exam: Present normal inspection; Absent edema or joint swelling Back Exam Back exam: Present normal inspection; Absent tenderness
[2023-05-14 00:49] LABS: Coronavirus 19, PCR Not Detected (NotDetected); Influenza A, PCR Not Detected (NotDetected); Influenza B, PCR Not Detected (NotDetected)
[2023-05-14 01:04] LABS: Appearance,Urine Clear (Clear); Bacteria,Urine Trace /lpf; Bilirubin,Urine Negative (Negative); Blood, Urine Negative (Negative); Color,Urine Yellow (Yellow); Glucose,Urine (UA) Negative (Negative); Ketones,Urine Negative (Negative); Leukocyte Esterase,Urine Trace (Negative); Microscopic, Urine URINE MICROSCOPIC (MICROSCOPIC); Nitrate,Urine Positive (Negative); Protein,Urine Negative (Negative); Squamous Epithelial Cell,Urine Occasional #/hpf (0-5); Urobilinogen,Urine 0.2 EU/dl (0.2)
--- NOTE | 2023-05-14 01:21 | PC.NURSE ---
called and alerted house to admit request. dx: uti. hospitalist
--- NOTE | 2023-05-14 01:42 | EXP.HP ---
History of Present Illness *Admission Date: 05/14/23 *Reason for visit:: fever *History of present illness: This is a 77-year-old male with PMHx of coronary artery disease status post CABG 25 years ago, stents within the last couple of years, HTN, HLD, history of previous kidneys stones presented with acute onset nausea and chills. Started this evening. He specifically denies chest pain, but reported some diffused abdominal discomfort. No vomiting. Denies shortness of breath. Patient is febrile on arrival. Admitted for further management. [facility] Disclaimer: The information contained in this section may have been updated after the patient was seen, as this information can be updated by other users. Medical History (Updated 05/14/23 @ 15:50 by Deacon Moran MD) History of heart attack TIA (transient ischemic attack) Surgical History (Updated 05/14/23 @ 10:58 by Juliana Dunn APRN) History of colon resection History of prostate surgery History of rotator cuff surgery Family History (Updated 05/14/23 @ 03:29 by Bia Sanders RN) Family history of heart attack Social History (Updated 05/14/23 @ 03:22 by Bia Sanders RN) Smoking Status: Never smoker second hand exposure: No alcohol intake: never substance use type: denies use current occupational status: employed Travel in the last 8 weeks: None household members: spouse housing: house caffeine: No Review of Systems Review of Systems Review of systems:: pertinent systems reviewed and negative unless documented below Meds Home Medications and Allergies Home Medications Medication Instructions Recorded Confirmed Type clopidogrel 75 mg tablet (Plavix) 75 mg PO DAILY Anti Platelet 10/22/17 05/14/23 History multivitamin 1 tab PO QAM Supplement 10/22/17 05/14/23 History tamsulosin 0.4 mg capsule 0.4 mg PO DAILY Urinary Retention 10/22/17 05/14/23 History fenofibrate nanocrystallized 48 mg 48 mg PO DAILY Cholesterol 01/29/18 05/14/23 History tablet (Tricor) acetaminophen 500 mg tablet 500 mg PO BID PRN pain 04/16/18 05/14/23 History (Tylenol Extra Strength) aspirin 81 mg tablet,delayed 81 mg PO DAILY Heart Health 04/16/18 05/14/23 History release (Adult Low Dose Aspirin) fluticasone propionate 50 50 mcg intranasal DAILY Allergies 04/16/18 05/14/23 History mcg/actuation nasal spray,suspension (Flonase Allergy Relief) rosuvastatin 20 mg tablet (Crestor) 20 mg PO DAILY Cholesterol 04/16/18 05/14/23 History finasteride 5 mg tablet 5 mg PO DAILY Prostate #90 tabs 05/06/19 05/14/23 History methocarbamol 500 mg tablet 500 mg PO BIDP PRN Muscle Pain 05/14/23 05/14/23 History metoprolol succinate 25 mg 12.5 mg PO BID High Blood Pressure 05/14/23 05/14/23 History tablet,extended release 24 hr oxybutynin chloride 10 mg 10 mg PO DAILY Bladder Problems 05/14/23 05/14/23 History tablet,extended release 24 hr New Prescriptions to Start Prescriptions: Allergies Allergy/AdvReac Type Severity Reaction Status Date / Time clarithromycin Allergy Unknown Verified 05/05/21 12:40 [CLARITHROMYCIN] morphine [MORPHINE] Allergy Unknown Verified 05/05/21 12:40 sulfamethoxazole Allergy Unknown Verified 05/05/21 12:40 [From BACTRIM] trimethoprim [From BACTRIM] Allergy Unknown Verified 05/05/21 12:40 Exam Data for Last 24 hours Vital signs and Labs for Last 24 Hours: Temp Pulse Resp BP Pulse Ox O2 Del Method 101.9 F H 98 H 22 141/60 H 98 Room Air 05/13/23 22:50 05/14/23 00:30 05/14/23 00:30 05/14/23 00:30 05/14/23 00:30 05/13/23 22:50 Laboratory Results - last 24 hr 05/13/23 00:37: Urine Color Cancelled, Urine Appearance Cancelled, Urine pH Cancelled, Ur Specific [place] Cancelled, Urine Protein Cancelled, Urine Glucose (UA) Cancelled, Urine Ketones Cancelled, Urine Blood Cancelled, Urine Nitrate Cancelled, Urine Bilirubin Cancelled, Urine Urobilinogen Cancelled, Ur Leukocyte Esteras
--- NOTE | 2023-05-14 02:29 | PC.NURSE ---
AT 0223 RECEIVED PHONE REPORT FROM [facility] ED NURSE. PATIENT DIAGNOSIS UTI/ABNORMAL ECG. A/O X 4. TO BE ADMITTED TO ROOM 207.
--- NOTE | 2023-05-14 02:40 | PC.NURSE ---
While in room adjusting the pt in his bed. Pt requested a cup for his hearing aides. Pt placed his hearing aides in the denture cup and they were given to his son that was in the room. MARY
[2023-05-14 02:50] LABS: Troponin I 1.03 ng/ml (0.00-0.034)
--- NOTE | 2023-05-14 03:02 | PC.NURSE ---
AT 0248 PATIENT ARRIVED TO THE FLOOR VIA STRETCHER. LAB CALLED WITH CRITICAL TROPONIN 1.03, TRICIA Scales NP NPTIFIED.
--- NOTE | 2023-05-14 03:50 | PC.NURSE ---
NPO FOR CARDIOLOGY CONSULT.
--- NOTE | 2023-05-14 06:24 | US_ITS ---
FINAL REPORT TECHNIQUE: Ultrasound images of the kidneys and bladder were obtained. CLINICAL HISTORY: Hx of kidneys stone COMPARISON: None FINDINGS: The right kidney measures 12.4 cm in length. It is normal in echogenicity. There is no hydronephrosis. There is a small 1.4 cm hypoechoic cyst present. The left kidney measures 12.3 cm in length. It is normal in echogenicity. There is no hydronephrosis. There is an echogenic stone present, nonobstructing, in the lower pole of the left kidney, measuring 9 mm. IMPRESSION: Small right 1.4 cm renal cyst. An echogenic stone is present in the lower pole of the left kidney, nonobstructing, measuring 9 mm. Reviewed, Interpreted and Dictated by Jr Jiménez III, MD Transcribed by Serene Balderrama Authenticated and [facility]
--- NOTE | 2023-05-14 06:29 | PC.NURSE ---
PATIENT HAS ELEVATED TROPONIN. TELE MONITORING CONTINOUS (SR/1 DEGREE AVB/BBB)LOW GRADE TEMP 100 PO THIS AM. BP READING LOW 91/48 PER DINAMAP. 104/60 MANUAL CUFF. DENIES PAIN/DISCOMFORT. NPO FOR CARDIOLOGY CONSULT. SPOUSE AT BED SIDE.
[2023-05-14 06:47] LABS: Basophils % 0.1 % (0.1-2.0); Hematocrit 38.8 % (42.0-52.0); Hemoglobin 12.3 g/dL (14.1-18.0); Lymphocytes # 0.5 K/mm3 (0.7-4.5); Lymphocytes % 2.4 % (10-50); Mean Corpuscular HGB Conc 31.6 g/dL (31.8-35.4); Mean Corpuscular Volume 85.4 fl (80-94); Mean Platelet Volume 8.8 fl (7.4-10.4); Monocytes % 4.5 % (1.7-9.3); Platelet Count 222 K/mm3 (142-424); Red Blood Count 4.54 M/mm3 (4.60-6.20); Red Cell Distribution Width 15.3 % (11.5-17.5); White Blood Count 21.6 K/mm3 (4.8-10.8)
[2023-05-14 06:55] LABS: Alanine Aminotransferase 21 U/L (12-78); Albumin Level 3.4 g/dl (3.5-5.0); Albumin/Globulin Ratio 1.4 (1.1-1.8); Alkaline Phosphatase 64 U/L (38-126); Anion Gap 13.4 mEq/L (5-15); Aspartate Amino Transferase 44 U/L (17-59); Bilirubin,Total 0.5 mg/dl (0.2-1.3); Blood Urea Nitrogen 27 mg/dl (9-20); Calcium 8.8 mg/dl (8.4-10.2); Carbon Dioxide 23 mmol/L (22.0-30.0); Chloride 105 mmol/L (98-107); Chol/HDL Ratio 3.4 (1-3.5); Cholesterol 137 mg/dl (140-200); Creatinine Clearance Estimated 54 mL/min (50-200); Estimated Glomerular Filt Rate 46 ml/min (>60); GFR (African American) 55 ML/MIN (>60); Globulin 2.4 g/dL (1.3-3.2); Glucose 89 mg/dl (74-100); HDL Cholesterol 40 mg/dl (40-60); Magnesium 1.2 mg/dl (1.6-2.3); Potassium 3.4 mmoL/L (3.5-5.1); Sodium 138 mmol/L (136-145); Total Protein,Serum 5.8 g/dl (6.3-8.2); Triglycerides 81 mg/dl (30-150); VLDL Cholesterol 16 mg/dL (0-40)
[2023-05-14 07:05] LABS: Direct LDL Cholesterol 73.57 mg/dL (100-129)
--- NOTE | 2023-05-14 07:13 | HMH.PHAINT1 ---
Pharmacy Intervention Comments: Medication history complete, medications verified with fill history. - Ibis Hoffman, PharmD Candidate 2023
--- NOTE | 2023-05-14 09:25 | PC.NURSE ---
Gone to Radiology via wheelchair with tech for imaging.
--- NOTE | 2023-05-14 10:45 | EXP.CARD.CON ---
History of Present Illness History of Present Illness Consult date: 05/14/23 Requesting physician: Deacon Moran Chief complaint: nausea, chlls, fever History of present illness: 77-year-old male with PMHx of coronary artery disease status post CABG 25 years ago, stents in 2017 with a normal stress test in 2018, HTN, HLD and a history of previous kidneys stones presented to ED with acute onset of nausea, chills, and generalized abdominal pain. Labs on presentation showed leukocytosis and a normal trop. UA was positive for nitrates. EKG on admission showed new changes compared to 2018 EKG- elevation in aVR and mild depression in leasds V1-V6 are noted. Patient denies chest pain or soa. Patient was febrile on presentation. Trop elevated to 1.03 after admission and WBC has increased to 21.6. creatinine 1.5. Patient is currently being treated for sepsis, UTI and NSTEMI. [facility] Disclaimer: The information contained in this section may have been updated after the patient was seen, as this information can be updated by other users. Medical History (Updated 05/14/23 @ 06:35 by Dario Subramanian APRN) History of heart attack TIA (transient ischemic attack) Surgical History (Updated 05/14/23 @ 10:58 by Juliana Dunn APRN) History of colon resection History of prostate surgery History of rotator cuff surgery Family History (Updated 05/14/23 @ 03:29 by Bia Sanders RN) Other Family history of heart attack Social History (Updated 05/14/23 @ 03:22 by Bia Sanders RN) Smoking Status: Never smoker second hand exposure: No alcohol intake: never substance use type: denies use current occupational status: employed Travel in the last 8 weeks: None household members: spouse housing: house caffeine: No Review of Systems Review of Systems Review of systems:: pertinent systems reviewed and negative unless documented below Constitutional Comments: chills *Cardiovascular Cardiovascular: Denies chest pain and Denies dyspnea *Respiratory Respiratory: Denies dyspnea *Gastrointestinal Gastrointestinal: Reports abdominal pain and Reports nausea Exam Data for Last 24 hours Vital signs and Labs for Last 24 Hours: Temp Pulse Resp BP Pulse Ox O2 Del Method 98.0 F 81 16 104/57 L 90 L Room Air 05/14/23 08:00 05/14/23 08:00 05/14/23 08:00 05/14/23 08:00 05/14/23 08:00 05/14/23 09:00 Laboratory Results - last 24 hr 05/13/23 00:37: Urine Color Cancelled, Urine Appearance Cancelled, Urine pH Cancelled, Ur Specific [place] Cancelled, Urine Protein Cancelled, Urine Glucose (UA) Cancelled, Urine Ketones Cancelled, Urine Blood Cancelled, Urine Nitrate Cancelled, Urine Bilirubin Cancelled, Urine Urobilinogen Cancelled, Ur Leukocyte Esterase Cancelled, Urine RBC Cancelled, Urine WBC Cancelled, Ur Squamous Epith Cells Cancelled, Ur Transition Epith Cell Cancelled, Ur Renal Epithelial Cell Cancelled, Calcium Carbonate Cryst Cancelled, Calcium Phosphate Cryst Cancelled, Calcium Oxalate Crystal Cancelled, Cystine Crystals Cancelled, Uric Acid Crystals Cancelled, Triple Phos Crystals Cancelled, Tyrosine Crystals Cancelled, Other Crystals Cancelled, Amorphous Sediment Cancelled, Other Sediment Cancelled, Urine Bacteria Cancelled, Fatty Casts Cancelled, Hyaline Casts Cancelled, Fine Granular Casts Cancelled, Coarse Granular Casts Cancelled, Waxy Casts Cancelled, RBC Casts Cancelled, WBC Casts Cancelled, Other Casts Cancelled, Urine Mucus Cancelled, Urine Trichomonas Cancelled, Urine Yeast Cancelled, Urine Sperm Cancelled 05/13/23 22:52: WBC 12.8 H, RBC 5.02, Hgb 13.2 L, Hct 42.3, MCV 84.3, MCH 26.4 L, MCHC 31.3 L, RDW 15.2, Plt Count 238, MPV 8.7, Neut % (Auto) 89.5 H, Lymph % (Auto) 5.7 L, Humphreys % (Auto) 2.7, Eos % (Auto) 1.8, Baso % (Auto) 0.3, Neut # (Auto) 11.5 H, Lymph # (Auto) 0.7, Humphreys # (Auto) 0.4, Eos # (Auto) 0.2, Baso # (Auto) 0.0, Total Counted 100, Neutrophils % (Manual) 85 H, Lymphocytes % (Manual) 11, Monocytes
--- NOTE | 2023-05-14 10:47 | HMH.PHAHEP ---
[facility] Heparin Dosing Demographic Data Admission date:: 05/14/23 Date: 05/14/23 Time: 10:47 Allergies Allergy/AdvReac Type Severity Reaction Status Date / Time clarithromycin Allergy Unknown Verified 05/05/21 12:40 [CLARITHROMYCIN] morphine [MORPHINE] Allergy Unknown Verified 05/05/21 12:40 sulfamethoxazole Allergy Unknown Verified 05/05/21 12:40 [From BACTRIM] trimethoprim [From BACTRIM] Allergy Unknown Verified 05/05/21 12:40 Height: 1.7 m Weight: 89.499 kg Indication Medication therapy:: Heparin Current Indications:: LOW DOSE PROTOCOL - NSTEMI Current Active Problems (Updated 05/14/23 @ 15:50 by Deacon Moran MD) NSTEMI (non-ST elevated myocardial infarction) (Acute) Sepsis (Acute) Hx of CABG (Acute) History of kidney stones (Acute) BPH (benign prostatic hyperplasia) (Acute) Leukocytosis (Acute) Acute UTI (Acute) Abnormal ECG (Acute) HLD (hyperlipidemia) (Chronic) HTN (hypertension) (Chronic) CAD (coronary artery disease) (Chronic) CVA?: No Bleeding problem?: No Kidney disease?: No ID?: Yes Additional History:: KIDNEY STONES, BPH, HYPERLIPIDEMIA, HYPERTENSION, CAD Desired PTT range:: 50-75 seconds Comments:: BASELINE = 26.9 SECONDS Labs Anticoagulation Lab Results:: 05/13/23 05/14/23 22:52 06:00 Hgb 13.2 L 12.3 L Hct 42.3 38.8 L Plt Count 238 222 Monitoring Dose Monitor 1: Date: 05/14/23 Time: 10:36 PTT Result:: BASELINE: 26.9 SECONDS Infusion Rate:: START HEPARIN DRIP AT 1000 UNITS/HOUR = 20 ML/HOUR AND BOLUS 4000 UNITS HEPARIN IV ONCE. Dose Monitor 2: Date: 05/14/23 Time: 17:00 PTT Result:: 96.8 SECONDS Infusion Rate:: DECREASED HEPARIN DRIP RATE TO 800 UNITS/HOUR = 16 ML/HOUR. Dose Monitor 3: Date: 05/15/23 Time: 00:52 PTT Result:: 63.2 SECONDS Infusion Rate:: CONTINUED CURRENT HEPARIN DRIP RATE OF 800 UNITS/HOUR = 16 ML/HOUR Dose Monitor 4: Date: 05/15/23 Time: 06:30 PTT Result:: 48.0 SECONDS Infusion Rate:: INCREASED HEPARIN DRIP RATE TO 900 UNITS/HOUR = 18 ML/HOUR AND BOLUSED 3000 UNITS HEPARIN IV ONCE. Comment:: DRIP STOPPED AFTER PATIENT TAKEN TO TRANSMISSION WORKER PRIOR TO 1300 PTT. Core Measures Is INR > or = 2 at discharge?: No Most Recent Labs:: Laboratory Results - last 24 hr 05/13/23 00:37: Urine Color Cancelled, Urine Appearance Cancelled, Urine pH Cancelled, Ur Specific [place] Cancelled, Urine Protein Cancelled, Urine Glucose (UA) Cancelled, Urine Ketones Cancelled, Urine Blood Cancelled, Urine Nitrate Cancelled, Urine Bilirubin Cancelled, Urine Urobilinogen Cancelled, Ur Leukocyte Esterase Cancelled, Urine RBC Cancelled, Urine WBC Cancelled, Ur Squamous Epith Cells Cancelled, Ur Transition Epith Cell Cancelled, Ur Renal Epithelial Cell Cancelled, Calcium Carbonate Cryst Cancelled, Calcium Phosphate Cryst Cancelled, Calcium Oxalate Crystal Cancelled, Cystine Crystals Cancelled, Uric Acid Crystals Cancelled, Triple Phos Crystals Cancelled, Tyrosine Crystals Cancelled, Other Crystals Cancelled, Amorphous Sediment Cancelled, Other Sediment Cancelled, Urine Bacteria Cancelled, Fatty Casts Cancelled, Hyaline Casts Cancelled, Fine Granular Casts Cancelled, Coarse Granular Casts Cancelled, Waxy Casts Cancelled, RBC Casts Cancelled, WBC Casts Cancelled, Other Casts Cancelled, Urine Mucus Cancelled, Urine Trichomonas Cancelled, Urine Yeast Cancelled, Urine Sperm Cancelled 05/13/23 22:52: WBC 12.8 H, RBC 5.02, Hgb 13.2 L, Hct 42.3, MCV 84.3, MCH 26.4 L, MCHC 31.3 L, RDW 15.2, Plt Count 238, MPV 8.7, Neut % (Auto) 89.5 H, Lymph % (Auto) 5.7 L, [place] % (Auto) 2.7, Eos % (Auto) 1.8, Baso % (Auto) 0.3, Neut # (Auto) 11.5 H, Lymph # (Auto) 0.7, [place] # (Auto) 0.4, Eos # (Auto) 0.2, Baso # (Auto) 0.0, Total Counted 100, Neutrophils % (Manual) 85 H, Lymphocytes % (Manual) 11, Monocytes % (Manual) 4, Platelet Estimate Normal, RBC Morphology Normal, D-Dimer 1.05 H, Sodium 14
--- NOTE | 2023-05-14 11:06 | CA_ITS ---
APPROVED REPORT EXAM: Comprehensive 2D, Doppler, and color-flow Echocardiogram House Father: Kelsey Silva RDCS Ht: 5 ft 7 in Wt: 197lbs BSA: 2.01 BP: 104/57 mmHg Indications: CAD,ABN EKG,H/O CABG,HTN,HLP 2D Dimensions LVOT 1.79 cm (M/F) 1.5-2.5 M-Mode Dimensions RVDd 2.86 cm (0.9-2.6) LA Diam 4.27 cm (1.9-4.0) LVDd 5.37 cm (3.5-5.7) Ao Diam 2.73 cm (2.0-3.7) LVDs 3.86 cm (3.5-5.7) IVSd 0.82 cm (0.6-1.1) PWd 0.72 cm (0.6-1.1) EF (Teich) 53.90% FS 28.10% EDV (Teich) 139.50 mL ESV (Teich) 64.30 mL LV Diastology E Decel Time 210.00 (160-240 msec) E/A Ratio 0.7 MED E' 6.70 (< 7 cm/sec) E'/MED E' Ratio 6.91 (>14) LAT E' 4.40 (<10 cm/sec) E/LAT E' Ratio 10.52 (>14) Mitral Valve MV E Max Andrea. 46.00 (40-130 cm/s) MV A Velocity 63.00 (40-130 cm/s) E/A Ratio 0.73 MV Decel. Time 210.00 (160-240 ms) MV PHT 62.00 ms Left Ventricle The left ventricle is normal size. The left ventricular systolic function is normal. The left ventricular ejection fraction is within the normal range. There is normal left ventricular wall thickness. Evaluation of wall motion is difficult in the setting of technically difficult study. There is possibly mild hypokinesis of the septal and anteroseptal LV [place]. There is normal diastolic function. LVEF is 55-60% Right Ventricle The right ventricle is moderately dilated. The right ventricular systolic function is normal. Atria The left atrium size is normal. The right atrium size is normal. Aortic Valve The aortic valve is mildly thickened. There is no aortic valvular stenosis. Trace aortic regurgitation. Mitral Valve The mitral valve is normal in structure. No evidence of mitral valve stenosis. Mild mitral regurgitation. Tricuspid Valve The tricuspid valve leaflets are thin and pliable Trace tricuspid regurgitation. RVSP is normal Pulmonic Valve The pulmonary valve is normal in structure. Trace pulmonic regurgitation. Great Vessels The aortic root is normal in size. The ascending aorta is not well visualized. The IVC is not well visualized. Pericardium There is no pericardial effusion. Other Information Study Quality: Technically Difficult Conclusion This is a technically difficult study in the setting of poor acoustic windows. Normal biventricular systolic function. Evaluation of wall motion is difficult in the setting of technically difficult study. There is possibly mild hypokinesis of the septal and anteroseptal LV [place]. The right ventricle is moderately dilated. No significant valvular stenosis or regurgitation. Electronically signed by : Marsha Haskins, 05/15/2023 00:29:46
[2023-05-14 11:31] LABS: PTT Heparin (inpatient only) 26.9 Seconds (23.6-34.0)
[2023-05-14 18:17] LABS: PTT Heparin (inpatient only) 96.8 Seconds (23.6-34.0)
[2023-05-14 18:27] LABS: Troponin I 8.79 ng/ml (0.00-0.034)
--- NOTE | 2023-05-14 18:36 | ECG_ITS ---
APPROVED REPORT Exam: Resting ECG HR:63 bpm ECG Measurements Heart Rate 63 AXES MA 236 P 56 QRSd 124 QRS 2 QT 426 T 78 QTc 434 Conclusion SINUS RHYTHM WITH FIRST DEGREE AV BLOCK MODERATE INTRAVENTRICULAR CONDUCTION DELAY [110+ ms QRS DURATION] NONSPECIFIC ST & T-WAVE ABNORMALITY ABNORMAL ECG UNCONFIRMED REPORT Electronically signed by : Mikey Wallace MD 05/15/2023 17:13:29
[2023-05-15] VITALS (18 sets, daily range): BP systolic 112–159; BP diastolic 52–79; PULSE 50–76; RESP 16–20; TEMP 36.6–37.8; O2SAT 92–98; BMI 30.9
[2023-05-15 00:51] LABS: PTT Heparin (inpatient only) 63.2 Seconds (23.6-34.0)
[2023-05-15 07:05] LABS: Alanine Aminotransferase 23 U/L (12-78); Albumin Level 3.2 g/dl (3.5-5.0); Albumin/Globulin Ratio 1.3 (1.1-1.8); Alkaline Phosphatase 61 U/L (38-126); Anion Gap 12.5 mEq/L (5-15); Aspartate Amino Transferase 68 U/L (17-59); Bilirubin,Total 0.2 mg/dl (0.2-1.3); Blood Urea Nitrogen 24 mg/dl (9-20); Calcium 8.4 mg/dl (8.4-10.2); Carbon Dioxide 23 mmol/L (22.0-30.0); Chloride 105 mmol/L (98-107); Creatinine Clearance Estimated 62 mL/min (50-200); Estimated Glomerular Filt Rate 54 ml/min (>60); GFR (African American) 65 ML/MIN (>60); Globulin 2.5 g/dL (1.3-3.2); Glucose 114 mg/dl (74-100); Magnesium 1.5 mg/dl (1.6-2.3); Potassium 3.5 mmoL/L (3.5-5.1); Sodium 137 mmol/L (136-145); Total Protein,Serum 5.7 g/dl (6.3-8.2)
--- NOTE | 2023-05-15 07:08 | IR_ITS ---
APPROVED REPORT Patient Location: Inpatient Software Test Developer: CHICHO Ruano RT (R) PROCEDURES Left heart catheterization Left ventriculogram Selective coronary angiogram Selective engagement of left internal mammary artery to the LAD Selective engagement saphenous vein graft to circumflex artery Selective engagement of saphenous vein graft to the diagonal artery Selective engagement of saphenous vein graft to the right coronary artery Drug-eluting stent deployment inside the saphenous vein graft supplying the circumflex artery INDICATION Acute non-ST elevation myocardial infarction, Coronary artery disease, History of coronary bypass surgery, Informed consent was obtained prior to the procedure. COMPLICATIONS NONE Estimated Blood Loss: LESS THAN 10 ML TECHNIQUE One percent lidocaine used to anesthetize the right groin. The right femoral artery was accessed via the Seldinger technique and a 5 Frisian sheath was placed in the right femoral artery. A JL 4, JR4 catheter were used to perform left heart catheterization, left ventriculogram selective coronary angiography as well as selective engagement of the 3 vein grafts and the left internal mammary artery. At the end the diagnostic angiogram therapeutic Was administered giving a therapeutic ACT and the LCB guide catheter was placed in the saphenous vein graft supplying the circumflex artery. A Choice PT extra-support wire was placed distal to the stenosis into the [place] circumflex artery. A 3 mm x 18 mm [place] frontier stent was deployed at 20 [place] reducing the critical greater than 90% stenosis to 0%. ASHLEY II flow was present at beginning the procedure with ASHLEY-3 flow at the end the procedure. At the end of procedure the apparatus was removed the groin was reprepped gloves were changed sheath was removed and hemostasis was achieved using Perclose device patient was transferred to the postop putting in stable condition ANGIOGRAPHIC RESULTS The left main artery Has a distal 50% stenosis. The left anterior descending artery Has proximal 60 and 70% stenosis with evidence of competitive flow from the left internal mammary artery. The circumflex artery Proximally occluded The right coronary artery Is a dominant with proximal and mid vessel greater than 90% stenoses. The entire vessel has severe diffuse disease. There is competitive flow from the vein graft supplying the posterior descending artery distally The CHAND ventriculogram reveals Preserved 60% The left ventricular end-diastolic pressure 10 mmHg ABBASI to LAD widely patent Saphenous vein graft to circumflex artery has a distal greater than 90% stenosis. Following stenting the vein graft was widely patent giving inline flow to the [place] circumflex artery Saphenous vein graft to the diagonal artery ostially occluded Saphenous vein graft to the posterior descending artery widely patent IMPRESSION Critical disease in the saphenous vein graft supplying the circumflex artery Successful stenting of the saphenous vein graft to the circumflex artery critical disease reduced to 0% with 1 drug-eluting stent Patent ABBASI to LAD Patent saphenous vein graft to distal right coronary Occluded saphenous vein graft to diagonal artery PLAN 1. Dual antiplatelet therapy 2. LDL less than 55 to achieve that high intensity statin 3. Avoidance of tobacco products 4. Risk factor modification 5. Cardiac rehabilitation Electronically signed by : Lalit Riggins MD 05/15/2023 13:17:49
[2023-05-15 07:29] LABS: Basophils % 0.1 % (0.1-2.0); Eosinophils # 0.1 K/mm3 (0.0-0.4); Eosinophils % 0.5 % (0.1-12.0); Hemoglobin 11.9 g/dL (14.1-18.0); Lymphocytes # 0.7 K/mm3 (0.7-4.5); Lymphocytes % 4.9 % (10-50); Mean Corpuscular HGB Conc 31.3 g/dL (31.8-35.4); Mean Corpuscular Hemoglobin 27.1 pg (27.0-31.2); Mean Corpuscular Volume 86.6 fl (80-94); Mean Platelet Volume 9.1 fl (7.4-10.4); Monocytes # 0.4 K/mm3 (0.1-1.0); Monocytes % 3.1 % (1.7-9.3); Neutrophils # 13.2 K/mm3 (1.8-7.8); Neutrophils % 91.4 % (37.0-80.0); Platelet Count 194 K/mm3 (142-424); Red Blood Count 4.39 M/mm3 (4.60-6.20); Red Cell Distribution Width 15.4 % (11.5-17.5); White Blood Count 14.4 K/mm3 (4.8-10.8)
[2023-05-15 07:57] LABS: MANUAL DIFFERENTIAL MANUAL DIFFERENTIAL (MANUAL DIFF)
[2023-05-15 08:46] LABS: Lymphocytes % 5 % (10-50); Neutrophils % 91 % (42-76); Platelet Estimate Marked Increase; RBC Morphology Normal; Total Cells Counted 100
--- NOTE | 2023-05-15 10:57 | EXP.ACUTE.PN ---
Subjective *Date: 05/15/23 *Time: 13:43 Interval history: Patient is chest pain-free and stable on room air. No fevers overnight. No nausea or vomiting. Overall feeling better with improvement in vitals. Appears to be stabilizing from his sepsis. Medical Exam Vital signs and Labs for Last 24 Hours: Vital Signs Temp Pulse Pulse Resp BP Pulse Ox O2 Del Method 05/15/23 08:00 98.7 F 72 16 134/52 L 94 L Room Air 05/15/23 08:29 Room Air 05/15/23 05:00 70 05/15/23 07:00 Room Air 05/15/23 05:00 Room Air 05/15/23 03:00 Room Air 05/15/23 04:00 98.1 F 75 16 117/78 92 L Room Air 05/15/23 00:00 60 05/14/23 20:21 70 05/15/23 00:00 97.9 F 71 17 129/70 92 L Room Air 05/15/23 01:00 Room Air 05/14/23 23:00 Room Air 05/14/23 21:00 Room Air 05/14/23 20:00 Room Air 05/14/23 20:00 97.9 F 69 17 104/56 L 96 Room Air 05/14/23 16:00 70 05/14/23 17:00 Room Air 05/14/23 15:00 Room Air 05/14/23 15:58 98.6 F 65 16 100/45 L 92 L Room Air 05/14/23 12:00 70 05/14/23 13:00 Room Air 05/14/23 11:00 Room Air 05/14/23 11:52 100.1 F H 69 16 97/51 L 93 L Room Air Intake and Output 05/14/23 05/15/23 05/15/23 23:59 07:59 15:59 Intake Total 386 / 1806 729 / 729 Output Total 300 / 400 500 / 500 Balance 86 / 1406 229 / 229 Intake: Intake, Oral Amount 270 / 510 Intake, Total IV Amount 116 / 246 729 / 729 0.9 % Sodium Chloride 1000ML 1, 518 / 518 000 ml @ 50 mls/hr IV .Q20H [facility] Rx#:[id number] Heparin Sodium,Porcine/D5w 500 116 / 116 211 / 211 ml @ 800 UNITS/HR 16 mls/hr IV .Q25H [facility] Rx#:[id number] Output: Output, Urine Amount 300 / 400 500 / 500 Other: Number of Unmeasured Voids 0 Weight 89.222 kg Patient Weight 05/15/23 23:59 Weight 89.222 kg Laboratory Results - last 24 hr 05/14/23 10:49: APTT 26.9 05/14/23 17:23: APTT 96.8 H*, Troponin I 8.79 H 05/15/23 00:37: APTT 63.2 H* 05/15/23 06:31: WBC 14.4 H D, RBC 4.39 L, Hgb 11.9 L, Hct 38.0 L, MCV 86.6, MCH 27.1, MCHC 31.3 L, RDW 15.4, Plt Count 194, MPV 9.1, Neut % (Auto) 91.4 H, Lymph % (Auto) 4.9 L, [place] % (Auto) 3.1, Eos % (Auto) 0.5, Baso % (Auto) 0.1, Neut # (Auto) 13.2 H, Lymph # (Auto) 0.7, [place] # (Auto) 0.4, Eos # (Auto) 0.1, Baso # (Auto) 0.0, Total Counted 100, Neutrophils % (Manual) 91 H, Band Neutrophils % 4.0, Lymphocytes % (Manual) 5 L, Platelet Estimate Marked increase, RBC Morphology Normal, APTT 48.0 H, Sodium 137, Potassium 3.5, Chloride 105, Carbon Dioxide 23, Anion Gap 12.5, BUN 24 H, Creatinine 1.30 H, Estimated Creat Clear 62, Estimated GFR 54 L, Est GFR ( Amer) 65, Glucose 114 H, Calcium 8.4, Magnesium 1.5 L D, Total Bilirubin 0.2, AST 68 H D, ALT 23, Alkaline Phosphatase 61, Troponin I 6.30 H, Total Protein 5.7 L, Albumin 3.2 L, Globulin 2.5, Albumin/Globulin Ratio 1.3 I & O for Labs for Last 24 Hours: Intake & Output 05/12/23 05/13/23 05/14/23 05/15/23 23:59 23:59 23:59 23:59 Intake Total 1806 / 1806 729 / 729 Output Total 400 / 400 500 / 500 Balance 1406 / 1406 229 / 229 Weight 86.183 kg 89.499 kg 89.222 kg Microbiology Reports for the Last 24 Hours: Microbiology 05/14/23 00:37 Urine,Clean Catch Urine Culture - Preliminary Constitutional: Present no acute distress, obese and chronically ill appearing Head: Present atraumatic and normocephalic ENT: Present normal exam Neck: Present normal inspection Respiratory: Present normal respiratory effort; Absent rhonchi, wheezes or crackles Cardiac: Present Reg Rate and Rhythm Comment:: Well-healed sternotomy scar GI: Present soft and normal bowel sounds; Absent distention or tenderness Extremities: Present normal inspection and full ROM Skin: Present intact; Absent erythema Neuro: Present Grossly Intact, alert, awake, oriented x 3 and moves all extremities Assessment and Raghavendra
--- NOTE | 2023-05-15 11:09 | EXP.CARD.PN ---
Subjective Subjective Date: 05/15/23 Time: 08:00 Principal diagnosis: uti, sepsis, nstemi Interval history: Patient doing well this morning denies chest pain or shortness of breath morning labs reviewed troponin continue to elevate throughout the evening and day reaching as high as 8.79. No additional EKG changes noted. She will be undergoing left heart catheterization today. Exam Data for Last 24 hours Vital signs and Labs for Last 24 Hours: Temp Pulse Resp BP Pulse Ox O2 Del Method 98.7 F 72 16 134/52 L 94 L Room Air 05/15/23 08:00 05/15/23 08:00 05/15/23 08:00 05/15/23 08:00 05/15/23 08:00 05/15/23 08:29 Laboratory Results - last 24 hr 05/14/23 10:49: APTT 26.9 05/14/23 17:23: APTT 96.8 H*, Troponin I 8.79 H 05/15/23 00:37: APTT 63.2 H* 05/15/23 06:31: WBC 14.4 H D, RBC 4.39 L, Hgb 11.9 L, Hct 38.0 L, MCV 86.6, MCH 27.1, MCHC 31.3 L, RDW 15.4, Plt Count 194, MPV 9.1, Neut % (Auto) 91.4 H, Lymph % (Auto) 4.9 L, [place] % (Auto) 3.1, Eos % (Auto) 0.5, Baso % (Auto) 0.1, Neut # (Auto) 13.2 H, Lymph # (Auto) 0.7, [place] # (Auto) 0.4, Eos # (Auto) 0.1, Baso # (Auto) 0.0, Total Counted 100, Neutrophils % (Manual) 91 H, Band Neutrophils % 4.0, Lymphocytes % (Manual) 5 L, Platelet Estimate Marked increase, RBC Morphology Normal, APTT 48.0 H, Sodium 137, Potassium 3.5, Chloride 105, Carbon Dioxide 23, Anion Gap 12.5, BUN 24 H, Creatinine 1.30 H, Estimated Creat Clear 62, Estimated GFR 54 L, Est GFR ( Amer) 65, Glucose 114 H, Calcium 8.4, Magnesium 1.5 L D, Total Bilirubin 0.2, AST 68 H D, ALT 23, Alkaline Phosphatase 61, Troponin I 6.30 H, Total Protein 5.7 L, Albumin 3.2 L, Globulin 2.5, Albumin/Globulin Ratio 1.3 I & O for Last 24 hours: Intake & Output 05/12/23 05/13/23 05/14/23 05/15/23 23:59 23:59 23:59 23:59 Intake Total 1806 / 1806 729 / 729 Output Total 400 / 400 500 / 500 Balance 1406 / 1406 229 / 229 Weight 190 lb 197 lb 4.984 oz 196 lb 11.2 oz Microbiology Reports for the Last 24 Hours: Microbiology 05/14/23 00:37 Urine,Clean Catch Urine Culture - Preliminary Constitutional Constitutional: no acute distress *Routine Respiratory Exam Respiratory: Present CTA bilaterally and symmetric chest movement *Routine Cardiovascular Exam Cardiovascular: Present RRR, Normal S1 and Normal S2 *Routine Abdominal Exam Abdominal: Present soft and normoactive bowel sounds; Absent tenderness *Routine Extremities Exam Extremities: Present full ROM and normal capillary refill; Absent edema *Routine Skin Exam Skin: Present intact, dry and warm Detailed Neck Exam: Thyroids Thyroid: Absent bruit Progress Note: A&P Assessment and plan (1) Sepsis: Status: Acute (2) NSTEMI (non-ST elevated myocardial infarction): Status: Acute (3) Acute UTI: Status: Acute (4) Leukocytosis: Status: Acute (5) Abnormal ECG: Status: Acute (6) History of kidney stones: Status: Acute (7) HLD (hyperlipidemia): Status: Chronic (8) HTN (hypertension): Status: Chronic (9) CAD (coronary artery disease): Status: Chronic (10) BPH (benign prostatic hyperplasia): Status: Acute Assessment and Plan Assessment and Plan for All Diagnoses:: NSTEMi Hx of CAD s/p stenting and CABG -Elevation noted in aVR, mild ST depression in leads V1 through V6 -Troponin 0.01?1.03 -Currently denies chest pain or shortness of breath -Start hep drip for nstemi -Plan for left heart catheterization tomorrow after continue treatment for sepsis and UTI. Discussed risk versus benefits with patient and family member they are agreeable. -Official echo: Normal biventricular systolic function, mild hypokinesis of the septal and anterior LV [place]. The right ventricle is moderately dilated. -Continue aspirin 81 mg p.o. daily, Plavix 75 mg daily, metoprolol 12.5 mg p.o. twice daily and atorvastatin 40 mg p.o. daily. 05/15/2023 update: Troponin continues to trend up yesterday peaking at 8.79.
[2023-05-15 13:34] LABS: CATHL Activated Clotting Time 308 SEC (74-125)
--- NOTE | 2023-05-15 13:37 | SUR.PHASEII ---
See Merge report for post cath vitals.
--- NOTE | 2023-05-15 19:46 | PC.NURSE ---
IV in LAC removed r/t pain, swelling, and warmth.
--- NOTE | 2023-05-15 23:33 | PC.NURSE ---
pt said feels like my heart is racing HR 77-80's, denies chest pain, soa, n/v. femoral site dsg c/d/i.
[2023-05-16] VITALS (10 sets, daily range): BP systolic 120–146; BP diastolic 51–76; PULSE 60–71; RESP 16–18; TEMP 36.6–38.2; O2SAT 94–96; BMI 30.9
--- NOTE | 2023-05-16 00:26 | PC.NURSE ---
temp 100.7 oral - acetaminophen per mar
--- NOTE | 2023-05-16 00:54 | PC.NURSE ---
rechecked temp 98.7 oral
[2023-05-16 06:37] LABS: Basophils % 0.4 % (0.1-2.0); Eosinophils # 0.2 K/mm3 (0.0-0.4); Hematocrit 36.8 % (42.0-52.0); Hemoglobin 11.7 g/dL (14.1-18.0); Lymphocytes # 0.8 K/mm3 (0.7-4.5); Lymphocytes % 9.6 % (10-50); Mean Corpuscular HGB Conc 31.9 g/dL (31.8-35.4); Mean Corpuscular Hemoglobin 27.5 pg (27.0-31.2); Mean Corpuscular Volume 86.2 fl (80-94); Monocytes # 0.5 K/mm3 (0.1-1.0); Monocytes % 5.7 % (1.7-9.3); Neutrophils % 82.3 % (37.0-80.0); Platelet Count 191 K/mm3 (142-424); Red Blood Count 4.27 M/mm3 (4.60-6.20); White Blood Count 8.4 K/mm3 (4.8-10.8)
[2023-05-16 06:49] LABS: Alanine Aminotransferase 19 U/L (12-78); Albumin Level 2.9 g/dl (3.5-5.0); Albumin/Globulin Ratio 1.2 (1.1-1.8); Alkaline Phosphatase 56 U/L (38-126); Anion Gap 11.6 mEq/L (5-15); Aspartate Amino Transferase 47 U/L (17-59); Bilirubin,Total 0.3 mg/dl (0.2-1.3); Blood Urea Nitrogen 20 mg/dl (9-20); Calcium 8.1 mg/dl (8.4-10.2); Carbon Dioxide 24 mmol/L (22.0-30.0); Chloride 106 mmol/L (98-107); Creatinine Clearance Estimated 67 mL/min (50-200); Estimated Glomerular Filt Rate 59 ml/min (>60); GFR (African American) 71 ML/MIN (>60); Globulin 2.5 g/dL (1.3-3.2); Glucose 86 mg/dl (74-100); Potassium 3.6 mmoL/L (3.5-5.1); Sodium 138 mmol/L (136-145); Total Protein,Serum 5.4 g/dl (6.3-8.2)
--- NOTE | 2023-05-16 09:20 | EXP.CARD.PN ---
Subjective Subjective Date: 05/16/23 Time: 08:00 Principal diagnosis: uti, sepsis, nstemi Interval history: S/P [facility] yesterday, see report below. Doing well, denies chest pain or soa. Morning labs reviewed. [facility] MPRESSION Critical disease in the saphenous vein graft supplying the circumflex artery Successful stenting of the saphenous vein graft to the circumflex artery critical disease reduced to 0% with 1 drug-eluting stent Patent ABBASI to LAD Patent saphenous vein graft to distal right coronary Occluded saphenous vein graft to diagonal artery PLAN 1. Dual antiplatelet therapy 2. LDL less than 55 to achieve that high intensity statin 3. Avoidance of tobacco products 4. Risk factor modification 5. Cardiac rehabilitation Exam Data for Last 24 hours Vital signs and Labs for Last 24 Hours: Temp Pulse Resp BP Pulse Ox O2 Del Method 97.9 F 62 16 139/76 94 L Room Air 05/16/23 07:58 05/16/23 07:58 05/16/23 07:58 05/16/23 07:58 05/16/23 07:58 05/16/23 08:00 Laboratory Results - last 24 hr 05/15/23 12:50: Activated Clotting Time 308 H* 05/16/23 06:01: WBC 8.4 D, RBC 4.27 L, Hgb 11.7 L, Hct 36.8 L, MCV 86.2, MCH 27.5, MCHC 31.9, RDW 15.0, Plt Count 191, MPV 9.0, Neut % (Auto) 82.3 H, Lymph % (Auto) 9.6 L, [place] % (Auto) 5.7, Eos % (Auto) 2.0, Baso % (Auto) 0.4, Neut # (Auto) 7.0, Lymph # (Auto) 0.8, [place] # (Auto) 0.5, Eos # (Auto) 0.2, Baso # (Auto) 0.0, Sodium 138, Potassium 3.6, Chloride 106, Carbon Dioxide 24, Anion Gap 11.6, BUN 20, Creatinine 1.20, Estimated Creat Clear 67, Estimated GFR 59, Est GFR ( Amer) 71, Glucose 86 D, Calcium 8.1 L, Total Bilirubin 0.3, AST 47 D, ALT 19, Alkaline Phosphatase 56, Total Protein 5.4 L, Albumin 2.9 L, Globulin 2.5, Albumin/Globulin Ratio 1.2 I & O for Last 24 hours: Intake & Output 05/13/23 05/14/23 05/15/23 05/16/23 23:59 23:59 23:59 23:59 Intake Total 1806 / 1806 1268 / 1628 420 / 420 Output Total 400 / 400 600 / 900 775 / 775 Balance 1406 / 1406 668 / 728 -355 / -355 Weight 190 lb 197 lb 4.984 oz 196 lb 11.2 oz 196 lb 11.2 oz Microbiology Reports for the Last 24 Hours: Microbiology 05/14/23 00:37 Urine,Clean Catch Urine Culture - Final NO GROWTH AFTER 48 HOURS 05/14/23 01:40 Blood Blood Culture - Preliminary NO GROWTH AFTER 48 HOURS 05/14/23 01:30 Blood Blood Culture - Preliminary Constitutional Constitutional: no acute distress *Routine Respiratory Exam Respiratory: Present CTA bilaterally and symmetric chest movement *Routine Cardiovascular Exam Cardiovascular: Present RRR, Normal S1 and Normal S2 *Routine Abdominal Exam Abdominal: Present soft and normoactive bowel sounds; Absent tenderness *Routine Extremities Exam Extremities: Present full ROM and normal capillary refill; Absent edema Comments: Right groin-mild bruising present. No swelling, bleeding, warmth present. Strong dorsalis pedis noted. *Routine Skin Exam Skin: Present intact, dry and warm Detailed Neck Exam: Thyroids Thyroid: Absent bruit Progress Note: A&P Assessment and plan (1) Sepsis: Status: Acute (2) NSTEMI (non-ST elevated myocardial infarction): Status: Acute (3) Acute UTI: Status: Acute (4) Leukocytosis: Status: Acute (5) Abnormal ECG: Status: Acute (6) History of kidney stones: Status: Acute (7) HLD (hyperlipidemia): Status: Chronic (8) HTN (hypertension): Status: Chronic (9) CAD (coronary artery disease): Status: Chronic (10) BPH (benign prostatic hyperplasia): Status: Acute Assessment and Plan Assessment and Plan for All Diagnoses:: NSTEMi Hx of CAD s/p stenting and CABG -Elevation noted in aVR, mild ST depression in leads V1 through V6 -Troponin 0.01?1.03 -Currently denies chest pain or shortness of breath -Start hep drip for nstemi -Plan for left heart catheterization tomorrow after continue treatment for se
--- NOTE | 2023-05-16 14:03 | EXP.PN ---
Subjective *Date: 05/16/23 *Time: 14:03 Interval history: Patient seen and examined with nursing staff today. They report that he remains afebrile with stable vital signs and saturating appropriately on room air. He underwent left heart cath yesterday with stent deployment and is tolerating his dual antiplatelet therapy and statin therapy with no adverse events. His morning labs identified creatinine 1.2 with normal electrolytes. His CBC identifies a normal white blood cell count with hemoglobin 11.7. His urine and blood cultures continue to be no growth to date. Renal ultrasound identified a left kidney stone approximately 9 mm. Nursing staff report that he is ambulating with no difficulty. His echocardiogram on 05/14/2023 identified an EF 55 to 60%. He is tolerating his IV antibiotic with no adverse events. Exam Data for Last 24 hours Vital signs and Labs for Last 24 Hours: Temp Pulse Resp BP Pulse Ox O2 Del Method 98.6 F 70 16 140/73 96 Room Air 05/16/23 11:14 05/16/23 12:00 05/16/23 11:14 05/16/23 11:14 05/16/23 11:14 05/16/23 13:00 Laboratory Results - last 24 hr 05/16/23 06:01: WBC 8.4 D, RBC 4.27 L, Hgb 11.7 L, Hct 36.8 L, MCV 86.2, MCH 27.5, MCHC 31.9, RDW 15.0, Plt Count 191, MPV 9.0, Neut % (Auto) 82.3 H, Lymph % (Auto) 9.6 L, [place] % (Auto) 5.7, Eos % (Auto) 2.0, Baso % (Auto) 0.4, Neut # (Auto) 7.0, Lymph # (Auto) 0.8, [place] # (Auto) 0.5, Eos # (Auto) 0.2, Baso # (Auto) 0.0, Sodium 138, Potassium 3.6, Chloride 106, Carbon Dioxide 24, Anion Gap 11.6, BUN 20, Creatinine 1.20, Estimated Creat Clear 67, Estimated GFR 59, Est GFR ( Amer) 71, Glucose 86 D, Calcium 8.1 L, Total Bilirubin 0.3, AST 47 D, ALT 19, Alkaline Phosphatase 56, Total Protein 5.4 L, Albumin 2.9 L, Globulin 2.5, Albumin/Globulin Ratio 1.2 I & O for Last 24 hours: Intake & Output 05/13/23 05/14/23 05/15/23 05/16/23 23:59 23:59 23:59 23:59 Intake Total 1806 / 1806 1268 / 1628 540 / 540 Output Total 400 / 400 600 / 900 1175 / 1175 Balance 1406 / 1406 668 / 728 -635 / -635 Weight 86.183 kg 89.499 kg 89.222 kg 89.222 kg Microbiology Reports for the Last 24 Hours: Microbiology 05/14/23 00:37 Urine,Clean Catch Urine Culture - Final NO GROWTH AFTER 48 HOURS 05/14/23 01:40 Blood Blood Culture - Preliminary NO GROWTH AFTER 48 HOURS 05/14/23 01:30 Blood Blood Culture - Preliminary Constitutional Constitutional: no acute distress, obese and cooperative *Routine HEENT Exam Head: Present normocephalic *Routine Respiratory Exam Respiratory: Present rhonchi, normal respiratory effort and symmetric chest movement *Routine Cardiovascular Exam Cardiovascular: Present RRR *Routine Extremities Exam Extremities: Present full ROM *Routine Skin Exam Comments: Right groin ecchymosis resolving *Routine Neurological Exam Neurological: Present alert, oriented X3, moving all extremities and normal speech Routine Psychiatric Exam Psychiatric: Present normal affect, normal thought process, cooperative, good insight and good judgment Assessment and Plan *Assessment and plan (1) Sepsis: Status: Acute Qualifiers: Sepsis type: sepsis due to unspecified organism Sepsis acute organ dysfunction status: with acute organ dysfunction Severe sepsis shock status: without septic shock Severe sepsis acute organ dysfunction type: acute renal failure Category: Medical Code(s): A41.9 - Sepsis, unspecified organism (2) NSTEMI (non-ST elevated myocardial infarction): Status: Acute Category: Medical Code(s): I21.4 - Non-ST elevation (NSTEMI) myocardial infarction (3) Acute UTI: Status: Acute Category: Medical Code(s): N39.0 - Urinary tract infection, site not specified (4) Leukocytosis: Status: Acute Qualifiers: Leukocytosis type: other Qualified Code(s): D72.828 - Other elevated w
--- NOTE | 2023-05-16 17:49 | PC.NURSE ---
Pt AxOx4. Has c/o a headache and discomfort to (R) groin site this shift. DSG with bruising was noted to cath site. MD aware. Pt also states it hurts when he sits up on the side of his bed. No other concerns stated. He has voided via urinal. Has been afebrile this shift. appetite has been good this shift. Family has visited. Call light within reach.
--- NOTE | 2023-05-16 21:29 | PC.NURSE ---
pt c/o nausea - was gave emesis bag, crackers and starry drink
[2023-05-17] VITALS: BP 137/69; PULSE 60; PULSE 66; RESP 19; TEMP 36.9; O2SAT 97
[2023-05-17 04:00] VITALS: BP 122/55; PULSE 50; PULSE 57; RESP 18; TEMP 36.7; O2SAT 95; BMI 30.5
[2023-05-17 06:37] LABS: Alanine Aminotransferase 20 U/L (12-78); Albumin Level 2.9 g/dl (3.5-5.0); Albumin/Globulin Ratio 1.2 (1.1-1.8); Alkaline Phosphatase 57 U/L (38-126); Anion Gap 11.5 mEq/L (5-15); Aspartate Amino Transferase 39 U/L (17-59); Bilirubin,Total 0.4 mg/dl (0.2-1.3); Blood Urea Nitrogen 15 mg/dl (9-20); Calcium 8.2 mg/dl (8.4-10.2); Carbon Dioxide 24 mmol/L (22.0-30.0); Chloride 106 mmol/L (98-107); Creatinine Clearance Estimated 80 mL/min (50-200); Estimated Glomerular Filt Rate 82 ml/min (>60); GFR (African American) 100 ML/MIN (>60); Globulin 2.5 g/dL (1.3-3.2); Glucose 87 mg/dl (74-100); Potassium 3.5 mmoL/L (3.5-5.1); Sodium 138 mmol/L (136-145); Total Protein,Serum 5.4 g/dl (6.3-8.2)
[2023-05-17 08:00] VITALS: BP 143/61; PULSE 60; RESP 19; TEMP 36.5; O2SAT 95; O2SAT 97
--- NOTE | 2023-05-17 08:29 | EXP.PHA.PN ---
Subjective *Date: 05/17/23 *Time: 08:29 Medical Exam Vital signs and Labs for Last 24 Hours: Vital Signs Temp Pulse Pulse Resp BP Pulse Ox O2 Del Method 05/17/23 08:00 97.7 F 60 19 143/61 H 95 Room Air 05/17/23 06:36 Room Air 05/17/23 04:00 98.0 F 57 L 18 122/55 L 95 Room Air 05/17/23 04:00 50 L 05/17/23 03:00 Room Air 05/17/23 00:00 98.4 F 66 19 137/69 97 Room Air 05/17/23 00:00 60 05/16/23 20:00 70 05/17/23 04:45 Room Air 05/17/23 01:00 Room Air 05/16/23 23:00 Room Air 05/16/23 21:00 Room Air 05/16/23 20:00 Room Air 05/16/23 20:00 98.6 F 65 18 146/69 H 95 Room Air 05/16/23 18:43 Room Air 05/16/23 16:00 70 05/16/23 17:00 Room Air 05/16/23 15:13 98.7 F 63 16 132/59 L 95 Room Air 05/16/23 15:00 Room Air 05/16/23 12:00 70 05/16/23 13:00 Room Air 05/16/23 11:14 98.6 F 62 16 140/73 96 Room Air 05/16/23 11:00 Room Air 05/16/23 09:00 Room Air Intake and Output 05/16/23 05/17/23 05/17/23 23:59 07:59 15:59 Intake Total 700 / 1300 350 / 590 240 / 590 Output Total 425 / 1950 450 / 450 0 / 450 Balance 275 / -650 -100 / 140 240 / 140 Intake: Intake, Oral Amount 390 / 630 240 / 240 Intake, Other Amount 10 / 20 Intake, Total IV Amount 300 / 650 350 / 350 0.9 % Sodium Chloride 1000ML 1, 250 / 500 350 / 350 000 ml @ 50 mls/hr IV .Q20H [facility] Rx#:[id number] Ceftriaxone 1 gm 1 gm In 0.9 % 50 / 150 Sodium Chloride 50 ml @ 100 mls /hr IV ONCE ONE Rx#:[id number] Output: Output, Urine Amount 425 / 1950 450 / 450 0 / 450 Other: Intake, Other Source Saline Solution Number of Voids 0 Number of Unmeasured Voids 1 Weight 88.224 kg Patient Weight 05/17/23 23:59 Weight 88.224 kg Laboratory Results - last 24 hr 05/17/23 06:05: Sodium 138, Potassium 3.5, Chloride 106, Carbon Dioxide 24, Anion Gap 11.5, BUN 15, Creatinine 0.90 D, Estimated Creat Clear 80, Estimated GFR 82, Est GFR ( Amer) 100 D, Glucose 87, Calcium 8.2 L, Total Bilirubin 0.4, AST 39, ALT 20, Alkaline Phosphatase 57, Total Protein 5.4 L, Albumin 2.9 L, Globulin 2.5, Albumin/Globulin Ratio 1.2 I & O for Labs for Last 24 Hours: Intake & Output 05/14/23 05/15/23 05/16/23 05/17/23 23:59 23:59 23:59 23:59 Intake Total 1806 / 1806 1268 / 1628 1300 / 1300 590 / 590 Output Total 400 / 400 600 / 900 1800 / 1950 450 / 450 Balance 1406 / 1406 668 / 728 -500 / -650 140 / 140 Weight 89.499 kg 89.222 kg 89.222 kg 88.224 kg Microbiology Reports for the Last 24 Hours: Microbiology 05/14/23 00:37 Urine,Clean Catch Urine Culture - Final NO GROWTH AFTER 48 HOURS The patient's infection will respond to the chosen ABx?: Yes (BLOOD CULTURE NO GROWTH/PENDING, URINE CULTURE NO GROWTH, AFEBRILE) Is the patient receiving the right drug, dose, and route?: Yes Could a more targeted ABx be ordered?: No
--- NOTE | 2023-05-17 09:53 | HMH.OTEV ---
OT Inpatient Evaluation Rehab OT IP Evaluation Start: 05/16/23 20:27 Freq: ONCE Status: Active Protocol: Document 05/17/23 09:49 [facility] (Rec: 05/17/23 09:53 [facility] [id number]) Rehab OT IP Assessment Subjective History Pt oriented x 4 on arrival. Pt agreeable to engage in therapy evaluation. Pt was admitted on 05/14/23 due to UTI , sepsis, non-stemi, and CKD. This is a 77-year-old male with PMHx of coronary artery disease status post CABG 25 years ago, stents within the last couple of years, HTN, HLD , history of previous kidneys stones presented with acute onset nausea and chills. Prior to being in the hospital , pt lived at home with his . He was independent with all ADLs and IADLs. Pt still drives. Pt does not require any type of AE during transfers. Subjective I am ready to go home. Objective Patient Orientation Person,Place,Birthday,Month Upper Extremity Gross ROM WFL Bed Mobility bed mobility-scooting,bed mobility - supine/sit,bed mobility - rolling Assist Level Supervision/Stand by Transfer Training Sit/Stand Transfer Assist Level Supervision/Stand by Chair Transfer Ability Supervision/Stand by Chair Transfer Technique Sit to/from Ambulatory Chair Transfer Assistive Devices None Lower Body Dressing Ability Standby Assistance Rehab OT IP prob,goals,plan Problems Date of Evaluation: 05/17/23 Rehab Potential Rehab Potential Innapropriate for Skilled Therapy Discharge Plan OT Discharge Plan Pt appears to be at his baseline with functional transfers and ADL independence . Pt can return home with his once he is medically stable per physician. Eval Complexity Eval Charge Codes 04854 - Low Complexity PHYSICIAN CERTIFICATION: I certify the specified therapy services for Darnell García are required, authorized, and reviewed every 30 days.
--- NOTE | 2023-05-17 10:06 | HMH.PTEV ---
Physical Therapy Evaluation Rehab PT IP Evaluation Start: 05/16/23 20:27 Freq: ONCE Status: Active Protocol: Document 05/17/23 10:00 JAYASHREE (Rec: 05/17/23 10:06 JAYASHREE [id number]) Subjective/History History History 77 yowm adm to [facility] with UTI and NSTEMI. He has hx of SD, CAD with CABG, HTN, HLD, TIA. He is now S/P heart cath with stent placed. He reports he lives with his , no steps to enter the home, and he is independent with all ADLs and ambulation without AD at baseline. Subjective Subjective Pt has no c/o this am, agrees to mobility assessment. New diagnosis of cancer in past 12 No months? Rehab PT IP Eval Objective Appearance Patient Behavior Appropriate Patient Orientation Person,Place,Time Difficulty following instructions none Speech Pattern Clear Ambulation Patient Able to Ambulate Yes Ambulation Observation IP General Gait Pattern Observation No Deviations/Normal Ambulation Distance (feet) 75 Ambulation Assistive Device None Ambulation Ability Independent Balance Ability to Arise Able, w/o using arms Sitting Balance Steady, safe Standing Balance Narrow stance w/o support Dynamic Sitting Balance Ability Good Dynamic Standing Balance Ability Good Transfers Bed Transfer Ability Independent Chair Transfer Ability Independent Sit to Stand Bed Transfer Ability Independent Sit to Stand Chair Transfer Ability Independent ROM All Extremities PT ROM Status WFL MMT All Extremities PT MMT WFL Rehab PT IP prob,goals,plan Problems Date of Evaluation: 05/17/23 Discharge Plan PT Discharge Plan Pt is appropriate to return home once medically stable for d/c. G -code Required No Eval Complexity Eval Charge Codes 99141 - High Complexity PHYSICIAN CERTIFICATION: I certify the specified therapy services for Darnell García are required, authorized, and reviewed every 30 days.
--- NOTE | 2023-05-17 11:33 | EXP.DC.SUM ---
General Admission date:: 05/14/23 Discharge date: 05/17/23 HPI HPI HPI: This is a 77-year-old male with PMHx of coronary artery disease status post CABG 25 years ago, stents within the last couple of years, HTN, HLD, history of previous kidneys stones presented with acute onset nausea and chills. Started this evening. He specifically denies chest pain, but reported some diffused abdominal discomfort. No vomiting. Denies shortness of breath. Patient is febrile on arrival. Admitted for further management. Hospital Course Hospital Course Hospital Course: The patient was admitted to the telemetry unit with cardiology consultation. Imaging was acquired and labs and inflammatory markers were trended. Problems addressed as follows: Severe sepsis with acute organ dysfunction, POA Tachycardia, tachypnea, leukocytosis, source identified IV fluid resuscitation with normalized lactic acid IV antibiotic therapy Blood cultures no growth to date Urine cultures no growth to date Trending labs and inflammatory markers with identified improvement UTI Left kidney stone 9 mm IV ceftriaxone transition to Levaquin 750 p.o. daily for 7 days on discharge Leukocytoses resolving Urine culture no growth to date Blood culture no growth to date Alpha-rin therapy Outpatient urology follow-up NSTEMI Coronary artery disease with previous CABG Telemetry monitoring Cardiology consult Echocardiogram 05/14/2023 with EF 55% Left heart cath with stent deployment 05/15/2023 Dual antiplatelet therapy Statin therapy Beta-rin therapy ARB therapy Acute kidney injury Resolved Baseline creatinine 1.2 Trending electrolytes and creatinine Renal ultrasound reviewed with left kidney stone Avoiding NSAIDs The patient identified improvement and inquired about discharge home. Physical therapy assisted with mobility evaluations. He will be discharged home to follow-up with his PCP in [facility] and continue follow-up with his cardiology team. He understands the importance of medication compliance and follow-up appointments. I spent 35 minutes in [id number] time with the patient and nursing staff concerning the discharge process. We discussed the admitting diagnoses and hospital course. We discussed identified improvement and the patient's desire to be discharged. We reviewed inpatient studies and imaging. The patient voiced understanding on the importance of follow-up with his primary care provider and specialist(s). The patient plans to be compliant with the medication regimen prescribed and follow-up appointments. He understands that he can return to the emergency department with any sudden changes or concerns. Exam Data for Last 24 hours Vital signs and Labs for Last 24 Hours: Temp Pulse Resp BP Pulse Ox O2 Del Method 97.7 F 60 19 143/61 H 97 Room Air 05/17/23 08:00 05/17/23 08:00 05/17/23 08:00 05/17/23 08:00 05/17/23 08:00 05/17/23 10:52 Laboratory Results - last 24 hr 05/17/23 06:05: Sodium 138, Potassium 3.5, Chloride 106, Carbon Dioxide 24, Anion Gap 11.5, BUN 15, Creatinine 0.90 D, Estimated Creat Clear 80, Estimated GFR 82, Est GFR ( Amer) 100 D, Glucose 87, Calcium 8.2 L, Total Bilirubin 0.4, AST 39, ALT 20, Alkaline Phosphatase 57, Total Protein 5.4 L, Albumin 2.9 L, Globulin 2.5, Albumin/Globulin Ratio 1.2 I & O for Last 24 hours: Intake & Output 05/14/23 05/15/23 05/16/23 05/17/23 23:59 23:59 23:59 23:59 Intake Total 1806 / 1806 1268 / 1628 1300 / 1300 590 / 590 Output Total 400 / 400 600 / 900 1800 / 1950 450 / 450 Balance 1406 / 1406 668 / 728 -500 / -650 140 / 140 Weight 89.499 kg 89.222 kg 89.222 kg 88.224 kg Microbiology Reports for the Last 24 Hours: Microbiology 05/14/23 01:30 Blood Blood Culture - Preliminary Gram Positive Cocci 05/14/23 00:37 Urine,Clean Catch Urine Culture - Final NO GROWTH AFTER 48 HOURS Const
--- NOTE | 2023-05-21 14:15 | CARE MANAGER ---
Attempted to contact patient related hospital discharge x2. Left VM message. ANDERSON Vaughn
--- NOTE | 2023-05-30 19:18 | PC.NURSE ---
pt has positive blood cultures for staphylococcus capitis pt admitted on 05/14/23 pt d/c from 2nd floor [address]. sanz on 05/17/23 with prescription for Levaquin 750 mg daily x7 days notified dr. norman pt d/c summary reviewed states since dr. sanz's note states the he was aware pt was positive for gram positive cocci and pt d/c on antibiotics no changes are needed.
== END 2023-05-17 13:12 | disposition home or self-care (01) | DRG 248 ==
LOC: ER 22:56 → 2ND 05-14 02:13
PROVIDERS: Internal Medicine; Nurse Practitioner Family; Admitting Provider Internal Medicine Adolescent Medicine; Emergency Provider Emergency Medicine; PCP Nurse Practitioner Family; Visit Provider Internal Medicine Adolescent Medicine
PROC: 02H03DZ Insertion of Intraluminal Device into Coronary Artery, One Artery, Percutaneous Approach (ICD-10-PCS; principal; 2023-05-15 07:15)
DX: R65.20 Severe sepsis without septic shock (principal); I21.4 Non-ST elevation (NSTEMI) myocardial infarction; N39.0 Urinary tract infection, site not specified; I25.810 Atherosclerosis of coronary artery bypass graft(s) without angina pectoris; I25.10 Atherosclerotic heart disease of native coronary artery without angina pectoris; A41.9 Sepsis, unspecified organism; N18.9 Chronic kidney disease, unspecified; E78.2 Mixed hyperlipidemia; I10 Essential (primary) hypertension; N40.1 Benign prostatic hyperplasia with lower urinary tract symptoms; Z95.1 Presence of aortocoronary bypass graft; Z95.5 Presence of coronary angioplasty implant and graft; Z79.899 Other long term (current) drug therapy; I25.2 Old myocardial infarction; Z86.73 Personal history of transient ischemic attack (TIA), and cerebral infarction without residual deficits; N40.0 Benign prostatic hyperplasia without lower urinary tract symptoms
CPT/HCPCS: 36415; 71045; 71275; 76770; 80053; 80061; 81001; 83735; 84484; 85007; 85025; 85347; 85378; 85730; 87040; 87077; 87086; 87186; 87636; 92937; 93005; 93306; 93459; 97163; 97165; 99152; 99285; C1725; C1760; C1769; C1876; C1894; C9604; J0696; J1644; J3475; Q9967

== ENCOUNTER → 2023-05-24 10:24 | Outpatient (CLI) | payer MEDICARE, BC, SELFPAY ==
--- NOTE | 2023-05-24 10:30 | CA_ITS ---
FINAL REPORT TECHNIQUE: Ultrasound images of the deep venous system were obtained from the left groin to the calf veins. CLINICAL HISTORY: edema of left lower extremity COMPARISON: None FINDINGS: The deep venous system is normally compressible. Normal flow is identified. There is a 3.9 cm left popliteal cyst. IMPRESSION: No evidence of left lower extremity DVT. 3.9 cm left popliteal cyst. Reviewed, Interpreted and Dictated by Carlos Manuel Murcia MD Transcribed by Trinidad Mahajan Authenticated and [facility]
== END ==
PROVIDERS: PCP Nurse Practitioner Family; Visit Provider Nurse Practitioner
DX: R60.0 Localized edema (principal)
CPT/HCPCS: 93971

== ENCOUNTER 2024-01-19 18:17 | Emergency (ER) | payer MEDICARE, BC, SELFPAY ==
[2024-01-19 18:18] VITALS: BP 149/70; PULSE 66; RESP 18; O2SAT 98; BMI 30.8
[2024-01-19] MEDS: ONDANSETRON 4MG/2ML VIAL 4 MG IV (18:41)
[2024-01-19] MEDS: LACTATED RINGERS 1000ML 1,000 ML 999 ML IV (18:41)
[2024-01-19 18:50] LABS: Chloride 103 mmol/L (98-107)
[2024-01-19 18:51] LABS: Potassium 4.2 mmoL/L (3.5-5.1); Sodium 135 mmol/L (136-145)
[2024-01-19 18:52] LABS: Basophils % 0.2 % (0.1-2.0); Eosinophils # 0.3 K/mm3 (0.0-0.4); Eosinophils % 2.9 % (0.1-12.0); Hemoglobin 14.2 g/dL (14.1-18.0); Lymphocytes # 0.4 K/mm3 (0.7-4.5); Lymphocytes % 3.8 % (10-50); Mean Corpuscular Hemoglobin 29.1 pg (27.0-31.2); Mean Corpuscular Volume 88.2 fl (80-94); Mean Platelet Volume 8.7 fl (7.4-10.4); Monocytes # 0.4 K/mm3 (0.1-1.0); Monocytes % 3.4 % (1.7-9.3); Neutrophils # 9.7 K/mm3 (1.8-7.8); Neutrophils % 89.8 % (37.0-80.0); Platelet Count 229 K/mm3 (142-424); Red Blood Count 4.88 M/mm3 (4.60-6.20); Red Cell Distribution Width 15.1 % (11.5-17.5); White Blood Count 10.8 K/mm3 (4.8-10.8)
[2024-01-19 18:53] LABS: Alanine Aminotransferase 20 U/L (12-78); Alkaline Phosphatase 58 U/L (38-126); Aspartate Amino Transferase 31 U/L (17-59); Blood Urea Nitrogen 21 mg/dl (9-20); Creatinine Clearance Estimated 72 mL/min (50-200); Estimated Glomerular Filt Rate 65 ml/min (>60); GFR (African American) 79 ML/MIN (>60)
[2024-01-19 18:54] LABS: Albumin Level 4.2 g/dl (3.5-5.0); Albumin/Globulin Ratio 1.6 (1.1-1.8); Anion Gap 11.2 mEq/L (5-15); Calcium 9.4 mg/dl (8.4-10.2); Carbon Dioxide 25 mmol/L (22.0-30.0); Globulin 2.7 g/dL (1.3-3.2); Glucose 96 mg/dl (74-100); MANUAL DIFFERENTIAL MANUAL DIFFERENTIAL (MANUAL DIFF); Total Protein,Serum 6.9 g/dl (6.3-8.2)
--- NOTE | 2024-01-19 19:08 | ED_ITS ---
Discharge Plan Disposition Patient Disposition: Home, Self-Care Prescriptions Prescriptions: New ondansetron 4 mg tablet,disintegrating 4 mg PO Q8H PRN (Reason: nausea and vomiting) 4 Days Qty: 12 0RF No Action fenofibrate nanocrystallized [Tricor] 48 mg tablet 48 mg PO DAILY acetaminophen [Tylenol Extra Strength] 500 mg tablet 500 mg PO BID PRN (Reason: pain) gabapentin 600 mg tablet 600 mg PO TID Patient Comments: TAKE 1 TABLET BY MOUTH THREE TIMES DAILY omeprazole 40 mg capsule,delayed release(DR/EC) 40 mg PO DAILY difluprednate 0.05 % drops Eye-Both multivitamin tablet 1 tab PO QAM tamsulosin 0.4 mg capsule,extended release 24hr 0.4 mg PO DAILY aspirin [Adult Low Dose Aspirin] 81 mg tablet,delayed release (DR/EC) 81 mg PO DAILY fluticasone propionate [Flonase Allergy Relief] 50 mcg/actuation spray,suspension 50 mcg INTRANASAL DAILY finasteride 5 mg tablet 5 mg PO DAILY Qty: 90 clopidogrel [Plavix] 75 mg tablet 75 mg PO DAILY Qty: 30 11RF metoprolol succinate 25 mg tablet extended release 24 hr 12.5 mg PO BID Qty: 60 5RF pantoprazole 40 mg tablet,delayed release (DR/EC) 40 mg PO DAILY Qty: 30 5RF rosuvastatin [Crestor] 20 mg tablet 20 mg PO DAILY Qty: 30 5RF methocarbamol 500 mg tablet 500 mg PO BIDP PRN (Reason: Muscle Pain) Patient Comments: TAKE 1 TABLET BY MOUTH TWICE A DAY NEEDED FOR MUSCLE STRAIN oxybutynin chloride 10 mg tablet extended release 24hr 10 mg PO DAILY Patient Comments: TAKE 1 TABLET BY MOUTH EVERY DAY Referrals Follow up/Referrals: Erika Sesay [Primary Care Provider] - See instructions Activity Restrictions/Add. Instructions Additional Instructions/Restrictions: At this time it was felt you are safe to be discharged home. If new or worsening symptoms please do not hesitate to return the emergency department. If symptoms persist please follow-up with your family doctor as you are able. Please take your medication as prescribed. Clinical Impressions Clinical Impression: Nausea, Diarrhea Instructions Patient Instructions: DI for Diarrhea and Traveler's Diarrhea -- Adult, DI for Diarrhea and Traveler's Diarrhea -- Child, DI for Nausea -- Adult, DI for Nausea -- Child Discharge ED Provider: Vance Buckley General Adult HPI General Chief complaint: Nausea/Vomiting/Diarrhea Stated complaint: abd pain, diarrhea, chills Time Seen by Provider: 01/19/24 18:28 Mode of Arrival: Ambulatory Source of Information: Patient Limitations: No Limitations Description of Symptoms (Recalled from ER Triage Doc. by RN): c/o nausea since last night and buring with urination History of Present Illness HPI narrative: Patient is a 78-year-old male who presents emergency department for evaluation of nausea, diarrhea, dysuria. Onset was acute, over the last 24 to 48 hours, diarrhea is nonbloody. No vomiting just nausea. No chest pain or abdominal pain reported. Due to persistent symptoms he presents here for continued evaluation at this time. Related Data Home Medications Medication Instructions Recorded Confirmed multivitamin 1 tab PO QAM Supplement 10/22/17 12/10/23 tamsulosin 0.4 mg capsule 0.4 mg PO DAILY Urinary Retention 10/22/17 12/10/23 fenofibrate nanocrystallized 48 mg 48 mg PO DAILY Cholesterol 01/29/18 12/10/23 tablet (Tricor) acetaminophen 500 mg tablet 500 mg PO BID PRN pain 04/16/18 12/10/23 (Tylenol Extra Strength) aspirin 81 mg tablet,delayed 81 mg PO DAILY Heart Health 04/16/18 12/10/23 release (Adult Low Dose Aspirin) fluticasone propionate 50 50 mcg intranasal DAILY Allergies 04/16/18 12/10/23 mcg/actuation nasal spray,suspension (Flonase Allergy Relief) finasteride 5 mg tablet 5 mg PO DAILY Prostate #90 tabs 05/06/19 12/10/23 methocarbamol 500 mg tablet 500 mg PO BIDP PRN Muscle Pain 05/14/23 12/10/23 oxybutynin chloride 10 mg 10 mg PO DAILY Bladder Problems 05/14/23 12/10/23 tablet,extended release 24 hr difluprednate 0.05 % eye drops drp Eye-Both 12/10/23 12/10/23 gabapentin 600 mg tablet 600 mg PO TID 12/10/23 12/10/23 omeprazole 40 mg capsule,delayed 40 mg PO DAILY 12/10/23 12/10/23 release Previous Rx's Medication Instructions Recorded clopidogrel 75 mg tablet (Plavix) 75 mg PO DAILY Anti Platelet #30 05/24/23 tabs metoprolol succinate 25 mg 12.5 mg (1/2 x 25 mg) PO BID High 05/24/23 tablet,extended release 24 hr Blood Pressure #60 tabs pantoprazole 40 mg tablet,delayed 40 mg PO DAILY #30 tabs 05/24/23 release rosuvastatin 20 mg tablet (Crestor) 20 mg PO DAILY Cholesterol #30 tabs 05/24/23 ondansetron 4 mg disintegrating 4 mg PO Q8H PRN nausea and 01/19/24 tablet vomiting 4 days #12 tabs Allergies Allergy/AdvReac Type Severity Reaction Status Date / Time clarithromycin Allergy Unknown Verified 12/10/23 13:05 [CLARITHROMYCIN] morphine [MORPHINE] Allergy Unknown Verified 12/10/23 13:05 sulfamethoxazole Allergy Unknown Verified 12/10/23 13:05 [From BACTRIM] trimethoprim [From BACTRIM] Allergy Unknown Verified 12/10/23 13:05 [facility] Disclaimer: The information contained in this section may have been updated after the patient was seen, as this information can be updated by other users. Medical History TIA (transient ischemic attack) History of heart attack Surgical History History of rotator cuff surgery History of prostate surgery History of colon resection Family History Other Family history of heart attack Social History Smoking Status: Former smoker second hand exposure: No alcohol intake: never substance use type: denies use current occupational status: employed Travel in the last 8 weeks: None household members: spouse housing: house caffeine: No ROS Obtained: Yes Systems reviewed as appropriate & no additional complaints except as documented Physical Exam General General appearance: alert and in no apparent distress Head Head exam: atraumatic and normocephalic Eye Eye exam: Present PERRL and EOMI ENT ENT exam: Present mucous membranes moist Neck Neck exam: Present normal inspection Chest Chest inspection: Present normal inspection and symmetric chest wall rise Respiratory Respiratory exam: Absent respiratory distress Cardiovascular Cardiovascular exam: Present regular rate and normal rhythm Abdominal Exam Abdominal exam: Present soft; Absent tenderness Extremities Exam Extremities exam: Present normal inspection Neurological Exam Neurological exam: Present alert Psychiatric Psychiatric exam: Present normal affect Skin Skin exam: Present warm and dry Medical Decision Making [place] Inquiry Pt receiving controlled substance: No Vital Signs: 01/19/24 18:18 Pulse Rate [Left Radial] 66 Respiratory Rate 18 Blood Pressure [Right Arm] 149/70 H Blood Pressure Mean [Right Arm] 96 Blood Pressure Source [Right Arm] Automatic Cuff Blood Pressure Position [Right Arm] Sitting 02 Sat by Pulse Oximetry 98 Oxygen Delivery Method Room Air Lab Data Lab Results 01/19/24 18:25: WBC 10.8, RBC 4.88, Hgb 14.2, Hct 43.0, MCV 88.2, MCH 29.1, MCHC 33.0, RDW 15.1, Plt Count 229, MPV 8.7, Neut % (Auto) 89.8 H, Lymph % (Auto) 3.8 L, [place] % (Auto) 3.4, Eos % (Auto) 2.9, Baso % (Auto) 0.2, Neut # (Auto) 9.7 H, Lymph # (Auto) 0.4 L, [place] # (Auto) 0.4, Eos # (Auto) 0.3, Baso # (Auto) 0.0, Total Counted 100, Neutrophils % (Manual) 91 H, Lymphocytes % (Manual) 8 L, Eosinophils % (Manual) 1, Platelet Estimate Normal, RBC Morphology Normal, S odium 135 L, Potassium 4.2, Chloride 103, Carbon Dioxide 25, Anion Gap 11.2, BUN 21 H, Creatinine 1.10, Estimated Creat Clear 72, Estimated GFR 65, Est GFR ( Amer) 79, Glucose 96, Calcium 9.4, Total Bilirubin 1.0, AST 31, ALT 20, Alkaline Phosphatase 58, Total Protein 6.9 D, Albumin 4.2, Globulin 2.7, Albumin/Globulin Ratio 1.6, Lipase 53 01/19/24 19:10: Urine Color Yellow, Urine Appearance Clear, Urine pH 6.0, Ur Specific [place] 1.020, Urine Protein Negative, Urine Glucose (UA) Negative, Urine Ketones Negative, Urine Blood Negative, Urine Nitrate Negative, Urine Bilirubin Negative, Urine Urobilinogen 0.2, Ur Leukocyte Esterase Negative, Urine RBC None, Urine WBC None, Ur Squamous Epith Cells None, Urine Bacteria None 01/19/24 18:25 01/19/24 18:25 Orders (Tests/Meds): ED MEDICATIONS Discontinued Medications Generic Name Dose Route Start Last Admin Trade Name Em PRN Reason Stop Dose Admin Lactated Ringer's 1,000 mls @ 999 mls/hr 01/19/24 18:45 01/19/24 18:41 Lactated Ringer's 1000 Ml Bag IV 01/19/24 19:45 999 mls/hr .Q1H1M YESENIA Administration Ondansetron HCl 4 mg 01/19/24 18:39 01/19/24 18:41 Ondansetron 4mg/2ml Vial IV 01/19/24 18:40 4 mg ONCE ONE Administration ORDERS Category Date Time Status Complete Blood Count Auto Diff Stat Lab 01/19/24 18:25 Completed Comprehensive Metabolic Panel Stat Lab 01/19/24 18:25 Completed Lipase Stat Lab 01/19/24 18:25 Completed UA [Urinalysis and Microscopic] Stat Lab 01/19/24 19:10 Completed Medical Decision Narrative: In summary patient is 78-year-old male past medical history described above presents emergency department for evaluation of diarrhea, nausea, dysuria. Patient is hemodynamically stable nontoxic-appearing upon arrival, afebrile. Differential diagnosis includes nonspecific viral syndrome, pancreatitis, urinary tract infection, among others. Workup will be conducted with hematologic labs, urinalysis. Initial inventions include crystalloid bolus, Zofran. Workup with imaging was considered however given patient has a nonfocal exam will be deferred. Workup reviewed by me, hematologic labs are nonactionable, urinalysis interpreted by me and not consistent with infection. Upon repeat evaluation patient underwent p.o. trial was successful. Given this patient is appropriate for discharge at this time was given return precautions. Critical Care Critical Care Time Critical Care Time: No
--- NOTE | 2024-01-19 19:08 | PC.NURSE ---
patient assisted to bathroom, given warm blankets, urine sample sent to lab
[2024-01-19 19:15] LABS: Lipase 53 U/L (23-300)
[2024-01-19 19:16] LABS: Microscopic, Urine URINE MICROSCOPIC (MICROSCOPIC)
[2024-01-19 19:19] LABS: Appearance,Urine CLEAR (Clear); Bilirubin,Urine Negative (Negative); Blood, Urine Negative (Negative); Color,Urine YELLOW (Yellow); Glucose,Urine (UA) Negative (Negative); Ketones,Urine Negative (Negative); Leukocyte Esterase,Urine Negative (Negative); Nitrate,Urine Negative (Negative); Protein,Urine Negative (Negative); Urobilinogen,Urine 0.2 EU/dl (0.2)
[2024-01-19 19:20] LABS: Eosinophils % 1 % (0-3); Lymphocytes % 8 % (10-50); Neutrophils % 91 % (42-76); Platelet Estimate Normal; RBC Morphology Normal; Total Cells Counted 100
--- NOTE | 2024-01-19 19:31 | PC.NURSE ---
rounded on pt at this time, pt voices no needs.
--- NOTE | 2024-01-19 19:55 | PC.NURSE ---
pt assisted to BR and given water and crackers for po challenge at this time
[2024-01-19 20:40] VITALS: BP 142/74; PULSE 78; RESP 18; TEMP 36.7; O2SAT 97
== END 2024-01-19 20:42 | disposition home or self-care (01) ==
PROVIDERS: Emergency Provider Emergency Medicine; PCP Nurse Practitioner Family
DX: R11.0 Nausea (principal); R19.7 Diarrhea, unspecified; R30.0 Dysuria
CPT/HCPCS: 80053; 81001; 83690; 85007; 85025; 96361; 96374; 99284; J2405

== ENCOUNTER 2024-05-15 16:40 | Emergency (ER) | payer MEDICARE, BC, SELFPAY ==
[2024-05-15 16:40] VITALS: BP 138/61; PULSE 58; RESP 18; TEMP 36.7; O2SAT 98; BMI 29.7
--- NOTE | 2024-05-15 16:41 | ECG_ITS ---
APPROVED REPORT Exam: Resting ECG HR:57 bpm ECG Measurements Heart Rate 57 AXES OR 201 P 52 QRSd 118 QRS 47 QT 428 T 49 QTc 421 Conclusion Sinus bradycardia Incomplete right bundle branch block First-degree AV block Electronically signed by : DWAYNE ALFREDO, 05/15/2024 18:48:21
[2024-05-15 16:47] VITALS: PULSE 58
--- NOTE | 2024-05-15 16:59 | XR_ITS ---
PROCEDURE INFORMATION: Exam: XR Chest Exam date and time: 05/15/2024 5:02 PM Age: 78 years old Clinical indication: Pain; Chest pressure; Additional info: Cp intermittent TECHNIQUE: Imaging protocol: Radiologic exam of the chest. Views: 1 view. COMPARISON: CT ANGIO CHEST PE PROTOCOL 05/14/2023 12:09 AM FINDINGS: Lungs: No evidence of airspace infiltrate. No pulmonary edema. Pleural spaces: No visible pleural effusion. No pneumothorax. Heart/Mediastinum: Cardiomediastinal [place]te is within normal limits, noting prominent pericardial fat pad. Bones/joints: No evidence of acute osseous abnormality. IMPRESSION: No acute findings.
--- NOTE | 2024-05-15 17:07 | [facility].EDCP ---
Discharge Plan Disposition Patient Disposition: Home, Self-Care Chief Complaint: Chest Pain Prescriptions Prescriptions: No Action fenofibrate nanocrystallized [Tricor] 48 mg tablet 48 mg PO DAILY acetaminophen [Tylenol Extra Strength] 500 mg tablet 500 mg PO BID PRN (Reason: pain) gabapentin 600 mg tablet 600 mg PO TID Patient Comments: TAKE 1 TABLET BY MOUTH THREE TIMES DAILY omeprazole 40 mg capsule,delayed release(DR/EC) 40 mg PO DAILY difluprednate 0.05 % drops Eye-Both multivitamin tablet 1 tab PO QAM tamsulosin 0.4 mg capsule,extended release 24hr 0.4 mg PO DAILY aspirin [Adult Low Dose Aspirin] 81 mg tablet,delayed release (DR/EC) 81 mg PO DAILY fluticasone propionate [Flonase Allergy Relief] 50 mcg/actuation spray,suspension 50 mcg INTRANASAL DAILY finasteride 5 mg tablet 5 mg PO DAILY Qty: 90 clopidogrel [Plavix] 75 mg tablet 75 mg PO DAILY Qty: 30 11RF metoprolol succinate 25 mg tablet extended release 24 hr 12.5 mg PO BID Qty: 60 5RF pantoprazole 40 mg tablet,delayed release (DR/EC) 40 mg PO DAILY Qty: 30 5RF rosuvastatin [Crestor] 20 mg tablet 20 mg PO DAILY Qty: 30 5RF ondansetron 4 mg tablet,disintegrating 4 mg PO Q8H PRN (Reason: nausea and vomiting) 4 Days Qty: 12 0RF methocarbamol 500 mg tablet 500 mg PO BIDP PRN (Reason: Muscle Pain) Patient Comments: TAKE 1 TABLET BY MOUTH TWICE A DAY NEEDED FOR MUSCLE STRAIN oxybutynin chloride 10 mg tablet extended release 24hr 10 mg PO DAILY Patient Comments: TAKE 1 TABLET BY MOUTH EVERY DAY Referrals Follow up/Referrals: Provider,Referral, MD [Primary Care Provider] - See instructions Activity Restrictions/Add. Instructions Additional Instructions/Restrictions: Call your machinist/machine builder for follow-up regarding this visit to the emergency department and need for more potential cardiac testing. Call your family doctor to establish care for this visit to the emergency department and schedule follow-up within 48 hours to ensure improvement. If you have any worsening of your condition or any other concerning signs or symptoms, return to the emergency department or your primary care doctor for further evaluation. Clinical Impressions Clinical Impression: Chest pain Qualifiers: Chest pain type: unspecified Qualified Code(s): R07.9 - Chest pain, unspecified Print Language Print Language: Divehi Discharge ED Provider: Kristofer Martinez General Chief Complaint: Chest Pain Stated Complaint: Chest Pain Time Seen by Provider: 05/15/24 16:59 Mode of Arrival: Ambulatory Source of Information: Patient Limitations: No Limitations Description of Symptoms (Recalled from ER Triage Doc. by RN): chest pain for 2 days. no radiation History of Present Illness HPI narrative: Please note that above description of symptoms, in this electronic medical record under categorization of recalled from ER triage doctor by RN are reflective of an initial nursing assessment, however, is not reflective of my full history and physical exam that was personally taken and clarified. Consequentially, this preceding description of symptoms, which may include the patient's categorized chief complaint in the EMR, do not reflect my personal clinical impression, and the ultimate description of history of present illness and patient stated complaints should be deferred to this section of the note. Unless stated otherwise or congruent with this section of the note, additional signs, symptoms, or incongruence should be interpreted as inaccurate with my clinical impression. Related Data Home Medications ?Medication ?Instructions ?Recorded ?Confirmed multivitamin 1 tab PO QAM Supplement 10/22/17 12/10/23 tamsulosin 0.4 mg capsule 0.4 mg PO DAILY Urinary Retention 10/22/17 12/10/23 fenofibrate nanocrystallized 48 mg 48 mg PO DAILY Cholesterol 01/29/18 12/10/23 tablet (Tricor) acetaminophen 500 mg tablet 500 mg PO BID PRN pain 04/16/18 12/10/23 (Tylenol Extra Strength) aspirin 81 mg tablet,delayed 81 mg PO DAILY Heart Health 04/16/18 12/10/23 release (Adult Low Dose Aspirin) fluticasone propionate 50 50 mcg intranasal DAILY Allergies 04/16/18 12/10/23 mcg/actuation nasal spray,suspension (Flonase Allergy Relief) finasteride 5 mg tablet 5 mg PO DAILY Prostate #90 tabs 05/06/19 12/10/23 methocarbamol 500 mg tablet 500 mg PO BIDP PRN Muscle Pain 05/14/23 12/10/23 oxybutynin chloride 10 mg 10 mg PO DAILY Bladder Problems 05/14/23 12/10/23 tablet,extended release 24 hr difluprednate 0.05 % eye drops drp Eye-Both 12/10/23 12/10/23 gabapentin 600 mg tablet 600 mg PO TID 12/10/23 12/10/23 omeprazole 40 mg capsule,delayed 40 mg PO DAILY 12/10/23 12/10/23 release Previous Rx's ?Medication ?Instructions ?Recorded clopidogrel 75 mg tablet (Plavix) 75 mg PO DAILY Anti Platelet #30 05/24/23 tabs metoprolol succinate 25 mg 12.5 mg (1/2 x 25 mg) PO BID High 05/24/23 tablet,extended release 24 hr Blood Pressure #60 tabs pantoprazole 40 mg tablet,delayed 40 mg PO DAILY #30 tabs 05/24/23 release rosuvastatin 20 mg tablet (Crestor) 20 mg PO DAILY Cholesterol #30 tabs 05/24/23 ondansetron 4 mg disintegrating 4 mg PO Q8H PRN nausea and 01/19/24 tablet vomiting 4 days #12 tabs Allergies Allergy/AdvReac Type Severity Reaction Status Date / Time clarithromycin Allergy Unknown Verified 12/10/23 13:05 [CLARITHROMYCIN] morphine [MORPHINE] Allergy Unknown Verified 12/10/23 13:05 sulfamethoxazole Allergy Unknown Verified 12/10/23 13:05 [From BACTRIM] trimethoprim [From BACTRIM] Allergy Unknown Verified 12/10/23 13:05 PFSH [facility] Disclaimer: The information contained in this section may have been updated after the patient was seen, as this information can be updated by other users. Medical History TIA (transient ischemic attack) History of heart attack Surgical History History of rotator cuff surgery History of prostate surgery History of colon resection Family History Other Family history of heart attack Social History Smoking Status: Never smoker second hand exposure: No alcohol intake: never substance use type: denies use current occupational status: employed Travel in the last 8 weeks: None household members: spouse housing: house caffeine: No ROS Obtained: Yes All systems reviewed & no additional complaints except as documented Physical Exam General General appearance: alert Neck Neck exam: Present trachea midline Chest Chest inspection: Present normal inspection and symmetric chest wall rise Respiratory Respiratory exam: Present normal lung sounds bilaterally; Absent respiratory distress, wheezes, stridor, accessory muscle use or prolonged expiratory phase Cardiovascular Cardiovascular exam: Present regular rate, normal rhythm, normal heart sounds and other (Pulses equal and symmetric in upper and lower extremities) Extremities Exam Extremities exam: Absent edema Neurological Exam Neurological exam: Present alert, oriented X3 and CN II-XII intact Skin Skin exam: Present warm and dry; Absent cyanosis, diaphoresis or pallor HEART Score HEART Score HEART Score assessment performed?: Yes History (anamnesis): Slightly suspicious ECG: Normal Age: >65 years Risk factors: 3 or more risk factors Troponin: </= normal limit HEART Score: 4 Critical Care Critical Care Time Critical Care Time: No Medical Decision Making Medical Records Medical records reviewed: Yes I reviewed the patient's medical records. [place] Inquiry Pt receiving controlled substance: No [place] was queried for this patient: No Vital Signs Vital Signs: 05/15/24 16:40 05/15/24 16:47 Temperature 98.1 F Temperature Source Oral Pulse Rate 58 L Pulse Rate [Right] 58 L Respiratory Rate 18 Blood Pressure [Right Arm] 138/61 Blood Pressure Mean [Right Arm] 86 02 Sat by Pulse Oximetry 98 Oxygen Delivery Method Room Air Lab Data Labs: Lab Results 05/15/24 16:45: WBC 6.5, RBC 4.24 L, Hgb 12.6 L, Hct 40.0 L, MCV 94.3 H, MCH 29.8, MCHC 31.6 L, RDW 14.0, Plt Count 242, MPV 9.6, Neut % (Auto) 65.8, Lymph % (Auto) 21.4, Garvin % (Auto) 7.2, Eos % (Auto) 4.9, Baso % (Auto) 0.7, Neut # (Auto) 4.3, Lymph # (Auto) 1.4, Garvin # (Auto) 0.5, Eos # (Auto) 0.3, Baso # (Auto) 0.1, Sodium 137, Potassium 3.8, Chloride 109 H, Carbon Dioxide 27, Anion Gap 4.8 L, BUN 22 H, Creatinine 1.20, Estimated Creat Clear 64, Estimated GFR 59, Est GFR ( Amer) 71, Glucose 107 H, Calcium 8.5, Total Bilirubin 0.5, AST 28, ALT 18, Alkaline Phosphatase 51, Troponin I < 0.01, NT-Pro-B Natriuret Pep 295, Total Protein 5.9 L, Albumin 3.6, Globulin 2.3, Albumin/Globulin Ratio 1.6, Lipase 86 05/15/24 16:45 05/15/24 16:45 Response Orders (Tests/Meds): ED MEDICATIONS Generic Name Dose Route Start Last Admin Trade Name Freq PRN Reason Stop Dose Admin Sodium Chloride 10 ml 05/15/24 16:50 Sodium Chloride 0.9% 10ml Flush Syringe IV 06/14/24 16:49 NEEDED PRN Maintain IV Site ORDERS Category Date Time Status CXR --portable [XR chest portable] Stat Exams 05/15/24 16:59 Taken CBC w/Auto Diff [Complete Blood Count Auto Diff] Stat Lab 05/15/24 16:45 Completed CMP [Comprehensive Metabolic Panel] Stat Lab 05/15/24 16:45 Completed Lipase Stat Lab 05/15/24 16:45 Completed NT Pro Brain Natriuretic Pep. Stat Lab 05/15/24 16:45 Completed Trop I [Troponin I] Stat Lab 05/15/24 16:45 Completed Troponin I Q3H Lab 05/15/24 20:00 Ordered Troponin I Q3H Lab 05/15/24 23:00 Ordered MDM Narrative Medical Decision Narrative: 78-year-old male history of CAD, hypertension, hyperlipidemia, UT status post stenting, four-vessel CABG currently on aspirin and Plavix presenting with intermittent chest pains. Patient states that chest pain started 2 days prior to this. They are intermittent, come and go, nothing in particular makes them better or worse. They are nonexertional, nonpositional, not associated with p.o. intake. States that pain is nonradiating, feels more pressure. States that he burped just prior to coming in and that relieved his pain on his way into the emergency department, so feels that it may be gas related. He also states that this does feel similar if not the exact same to his previous MIs necessitating stenting. No syncope, shortness of breath, diaphoresis, nausea, vomiting, etc. History was obtained via conversation with patient and family. On arrival, patient hemodynamically stable, alert, oriented x4, appropriate, GCS 15, moving all extremities spontaneously, pupils equal and reactive to light. Full physical exam performed and significant for very well, pleasant patient who is in no acute distress. Speaking full sentences. Skin is warm and dry, good capillary refill, pulses are equal and symmetric in upper and lower extremities. Patient has midline sternotomy scar that appears intact. Normal S1-S2, no murmurs gallops rubs. Lungs are clear to auscultation bilaterally. Patient has no abdominal discomfort on my exam. Neurologically intact and ambulatory without issue. 1+ pitting lower extremity bilateral edema. Differential includes microvascular coronary artery disease, CHF, ACS, UT, coronary artery dissection, pneumothorax, PE, dissection, pericarditis, myocarditis, pneumothorax, aortic aneurysm, pneumonia, bronchitis, among others. Patient took full dose aspirin prior to arrival to the emergency department, was not in any pain when he arrived, interventions were withheld at this time. Patient placed on continuous cardiac monitoring and continuous pulse ox with initial blood pressure 138/61, heart rate 58, saturation 98% on room air. Independent interpretation of EKG shows sinus bradycardia 57 bpm. First-degree AV block. No ST or T wave changes concerning for acute ischemia. NC 201, QRS 118, QTc 421. Incomplete right bundle branch morphology. Workup independently interpreted and significant for nonactionable CBC or chemistry. Normal kidney function. Patient's troponin undetectably low and BNP 295. On independent interpretation of imaging, no acute cardiopulmonary or airspace disease on chest x-ray. No evidence of pleural effusion or edema. See radiology read for full review of final results. Heart score 4. On reevaluation, patient still resting in no acute distress has no return of pain. Given patient presentation, workup, history, this most likely represents cardiac versus noncardiac chest pain. It was explained that cardiac chest pain does not always present as lab or EKG abnormalities and that he should follow-up closely with his machinist/machine builder, he voiced his understanding. Because patient at baseline without signs or symptoms of clinical decompensation, deemed appropriate for discharge. Results were relayed to patient who voiced understanding and were agreeable to outpatient management and follow up. I discussed my clinical impression with patient and answered all questions. At this time, the evidence for any other entities in the differential is insufficient to warrant any further testing or ED observation. This was explained as well. Advisory was given that persistent or worsening symptoms require further evaluation. I confirmed the understanding of this discussion. [employer] Attendant disclaimer Much of this encounter note is an electronic needle felt making machine operator spoken language to printed text. Electronic needle felt making machine operator of the spoken language may permit errors. Although I have reviewed the note, some errors may still exist.
[2024-05-15 17:09] LABS: Albumin Level 3.6 g/dl (3.5-5.0); Chloride 109 mmol/L (98-107); Sodium 137 mmol/L (136-145)
[2024-05-15 17:10] LABS: Potassium 3.8 mmoL/L (3.5-5.1)
[2024-05-15 17:12] LABS: Alanine Aminotransferase 18 U/L (12-78); Albumin/Globulin Ratio 1.6 (1.1-1.8); Alkaline Phosphatase 51 U/L (38-126); Anion Gap 4.8 mEq/L (5-15); Aspartate Amino Transferase 28 U/L (17-59); Bilirubin,Total 0.5 mg/dl (0.2-1.3); Blood Urea Nitrogen 22 mg/dl (9-20); Carbon Dioxide 27 mmol/L (22.0-30.0); Creatinine Clearance Estimated 64 mL/min (50-200); Estimated Glomerular Filt Rate 59 ml/min (>60); GFR (African American) 71 ML/MIN (>60); Globulin 2.3 g/dL (1.3-3.2); Lipase 86 U/L (23-300); Total Protein,Serum 5.9 g/dl (6.3-8.2)
[2024-05-15 17:13] LABS: Basophils # 0.1 K/mm3 (0-0.2); Basophils % 0.7 % (0.1-2.0); Calcium 8.5 mg/dl (8.4-10.2); Eosinophils # 0.3 K/mm3 (0.0-0.4); Eosinophils % 4.9 % (0.1-12.0); Glucose 107 mg/dl (74-100); Hemoglobin 12.6 g/dL (14.1-18.0); Lymphocytes # 1.4 K/mm3 (0.7-4.5); Lymphocytes % 21.4 % (10-50); Mean Corpuscular HGB Conc 31.6 g/dL (31.8-35.4); Mean Corpuscular Hemoglobin 29.8 pg (27.0-31.2); Mean Corpuscular Volume 94.3 fl (80-94); Mean Platelet Volume 9.6 fl (7.4-10.4); Monocytes # 0.5 K/mm3 (0.1-1.0); Monocytes % 7.2 % (1.7-9.3); Neutrophils # 4.3 K/mm3 (1.8-7.8); Neutrophils % 65.8 % (37.0-80.0); Platelet Count 242 K/mm3 (142-424); Red Blood Count 4.24 M/mm3 (4.60-6.20); White Blood Count 6.5 K/mm3 (4.8-10.8)
[2024-05-15 17:22] LABS: NT Pro Brain Natriuretic Pep. 295 pg/mL (0-450)
[2024-05-15 17:32] LABS: Troponin I < 0.01 ng/ml (0.00-0.034)
[2024-05-15 17:50] VITALS: BP 150/72; PULSE 53; RESP 20; TEMP 36.8; O2SAT 94
== END 2024-05-15 17:53 | disposition home or self-care (01) ==
PROVIDERS: Emergency Provider Emergency Medicine; PCP Nurse Practitioner Family
DX: R07.9 Chest pain, unspecified (principal); Z86.79 Personal history of other diseases of the circulatory system; I10 Essential (primary) hypertension; E78.5 Hyperlipidemia, unspecified; Z95.1 Presence of aortocoronary bypass graft; Z79.01 Long term (current) use of anticoagulants
CPT/HCPCS: 71045; 80053; 83690; 83880; 84484; 85025; 93005; 99284

== ENCOUNTER 2024-09-09 16:51 | Emergency (ER) | payer MEDICARE, BC, SELFPAY ==
[2024-09-09 16:52] VITALS: BP 149/79; PULSE 66; RESP 19; TEMP 37; O2SAT 98; BMI 30.9
[2024-09-09 17:55] VITALS: BP 131/68; PULSE 60; RESP 18; TEMP 36.6; O2SAT 98
--- NOTE | 2024-09-09 18:40 | ED_ITS ---
Discharge Plan Disposition Patient Disposition: Home, Self-Care Prescriptions Prescriptions: New bisacodyl [Dulcolax (bisacodyl)] 10 mg suppository 10 mg [place] DAILY 2 Days Qty: 12 0RF magnesium citrate Solution 300 ml PO HS PRN (Reason: constipation) 1 Days Qty: 296 0RF No Action fenofibrate nanocrystallized [Tricor] 48 mg tablet 48 mg PO DAILY acetaminophen [Tylenol Extra Strength] 500 mg tablet 500 mg PO BID PRN (Reason: pain) gabapentin 600 mg tablet 600 mg PO TID Patient Comments: TAKE 1 TABLET BY MOUTH THREE TIMES DAILY omeprazole 40 mg capsule,delayed release(DR/EC) 40 mg PO DAILY difluprednate 0.05 % drops Eye-Both multivitamin tablet 1 tab PO QAM tamsulosin 0.4 mg capsule,extended release 24hr 0.4 mg PO DAILY aspirin [Adult Low Dose Aspirin] 81 mg tablet,delayed release (DR/EC) 81 mg PO DAILY fluticasone propionate [Flonase Allergy Relief] 50 mcg/actuation spray,suspension 50 mcg INTRANASAL DAILY finasteride 5 mg tablet 5 mg PO DAILY Qty: 90 clopidogrel [Plavix] 75 mg tablet 75 mg PO DAILY Qty: 30 11RF metoprolol succinate 25 mg tablet extended release 24 hr 12.5 mg PO BID Qty: 60 5RF pantoprazole 40 mg tablet,delayed release (DR/EC) 40 mg PO DAILY Qty: 30 5RF rosuvastatin [Crestor] 20 mg tablet 20 mg PO DAILY Qty: 30 5RF ondansetron 4 mg tablet,disintegrating 4 mg PO Q8H PRN (Reason: nausea and vomiting) 4 Days Qty: 12 0RF methocarbamol 500 mg tablet 500 mg PO BIDP PRN (Reason: Muscle Pain) Patient Comments: TAKE 1 TABLET BY MOUTH TWICE A DAY NEEDED FOR MUSCLE STRAIN oxybutynin chloride 10 mg tablet extended release 24hr 10 mg PO DAILY Patient Comments: TAKE 1 TABLET BY MOUTH EVERY DAY Referrals Follow up/Referrals: Erika Sesay [Primary Care Provider] - See instructions Activity Restrictions/Add. Instructions Additional Instructions/Restrictions: No evidence of significant or severe constipation at this point we will try some medications to see if he could have a good bowel movement. Please take your magnesium citrate and your Dulcolax suppositories for a few days and see if those work to have a bowel movement. You may also escalate MiraLAX starting with half a cap twice a day doubling the dose every 3 days until you are having normal soft bowel movements the consistency of soft serve ice cream daily then stay on that dose for 2 weeks. Return with any significant lower abdominal pain difficulty with having bowel movements such as having significant urges or rectal pressure or other concerns. Clinical Impressions Clinical Impression: Constipation Print Language Print Language: Portuguese Discharge ED Provider: Johnathan Baum General Adult HPI General Chief complaint: Recheck/Abnormal Lab/Rx Stated complaint: constipation Time Seen by Provider: 09/09/24 17:00 Mode of Arrival: Ambulatory Source of Information: Patient Limitations: No Limitations Description of Symptoms (Recalled from ER Triage Doc. by RN): pt reports no BM for 5 days. pt reports taking mirilax yesterday with no relief. History of Present Illness HPI narrative: 78-year-old male with no significant past medical problems presents today with 4 days of having no bowel movement. States he is normally pretty regular. States the reason he came to the emergency department today was because he was concerned about hearing stories about people getting impacted and did not want to get to that point. Had tried some MiraLAX just for 1 to 2 days without any significant improvement has not tried other medications. No pain or other concerns or other symptoms. No nausea and vomiting. Related Data Home Medications ?Medication ?Instructions ?Recorded ?Confirmed multivitamin 1 tab PO QAM Supplement 10/22/17 12/10/23 tamsulosin 0.4 mg capsule 0.4 mg PO DAILY Urinary Retention 10/22/17 12/10/23 fenofibrate nanocrystallized 48 mg 48 mg PO DAILY Cholesterol 01/29/18 12/10/23 tablet (Tricor) acetaminophen 500 mg tablet 500 mg PO BID PRN pain 04/16/18 12/10/23 (Tylenol Extra Strength) aspirin 81 mg tablet,delayed 81 mg PO DAILY Heart Health 04/16/18 12/10/23 release (Adult Low Dose Aspirin) fluticasone propionate 50 50 mcg intranasal DAILY Allergies 04/16/18 12/10/23 mcg/actuation nasal spray,suspension (Flonase Allergy Relief) finasteride 5 mg tablet 5 mg PO DAILY Prostate #90 tabs 05/06/19 12/10/23 methocarbamol 500 mg tablet 500 mg PO BIDP PRN Muscle Pain 05/14/23 12/10/23 oxybutynin chloride 10 mg 10 mg PO DAILY Bladder Problems 05/14/23 12/10/23 tablet,extended release 24 hr difluprednate 0.05 % eye drops drp Eye-Both 12/10/23 12/10/23 gabapentin 600 mg tablet 600 mg PO TID 12/10/23 12/10/23 omeprazole 40 mg capsule,delayed 40 mg PO DAILY 12/10/23 12/10/23 release Previous Rx's ?Medication ?Instructions ?Recorded clopidogrel 75 mg tablet (Plavix) 75 mg PO DAILY Anti Platelet #30 05/24/23 tabs metoprolol succinate 25 mg 12.5 mg (1/2 x 25 mg) PO BID High 05/24/23 tablet,extended release 24 hr Blood Pressure #60 tabs pantoprazole 40 mg tablet,delayed 40 mg PO DAILY #30 tabs 05/24/23 release rosuvastatin 20 mg tablet (Crestor) 20 mg PO DAILY Cholesterol #30 tabs 05/24/23 ondansetron 4 mg disintegrating 4 mg PO Q8H PRN nausea and 01/19/24 tablet vomiting 4 days #12 tabs bisacodyl 10 mg rectal suppository 10 mg [place] DAILY 2 days #12 ea 09/09/24 (Dulcolax (bisacodyl)) magnesium citrate 300 ml PO HS PRN constipation 1 09/09/24 day #296 mL Allergies Allergy/AdvReac Type Severity Reaction Status Date / Time clarithromycin Allergy Unknown Verified 12/10/23 13:05 (CLARITHROMYCIN) morphine (MORPHINE) Allergy Unknown Verified 12/10/23 13:05 sulfamethoxazole (From Allergy Unknown Verified 12/10/23 13:05 BACTRIM) trimethoprim (From BACTRIM) Allergy Unknown Verified 12/10/23 13:05 PFSH [facility] Disclaimer: The information contained in this section may have been updated after the patient was seen, as this information can be updated by other users. Medical History TIA (transient ischemic attack) History of heart attack Surgical History History of rotator cuff surgery History of prostate surgery History of colon resection Family History Other Family history of heart attack Social History Smoking Status: Former smoker second hand exposure: No alcohol intake: never substance use type: denies use current occupational status: employed Travel in the last 8 weeks: None household members: spouse housing: house caffeine: No Have you lived/traveled outside [place] in past 30 days?: No Contact w/someone who lives/traveled outside [place] past 30 days?: No Exposure to someone with infectious disease in past 14 days?: No Do you have a fever (greater than 100.4 F or 38 C)?: No Have you tested positive for COVID-19: No Exposed to someone with COVID-19 in past 14 days?: No Do you have a sore throat?: No Do you have a cough?: No Do you have any weakness?: No Do you have any diarrhea?: No Are you experiencing any unusual bleeding?: No Do you have any muscle aches/pain?: No Do you have any abdominal pain?: No Are you experiencing loss of taste or smell?: No Other Medical History Have you received the Flu Vaccine for this season: No Have you received the Pneumonia Vaccine: Yes ROS Obtained: Yes All systems reviewed & no additional complaints except as documented Physical Exam General General appearance: alert Respiratory Respiratory exam: Present normal lung sounds bilaterally Cardiovascular Cardiovascular exam: Present normal rhythm Abdominal Exam Abdominal exam: Present soft; Absent distention or tenderness Neurological Exam Neurological exam: Present alert and oriented X3 Medical Decision Making Medical Records Screening: Per USPSTF and CDC recommendations, given the prevalence of disease in our region, it is our hospital?s policy to screen for HIV and viral Hepatitis for all patients aged 18 and over and those with ongoing risk factors. [place] Inquiry Pt receiving controlled substance: No Vital Signs: 09/09/24 16:52 09/09/24 17:55 Temperature 98.6 F 97.9 F Temperature Source Oral Oral Pulse Rate 60 Pulse Rate [Left Radial] 66 Respiratory Rate 19 18 Blood Pressure 131/68 Blood Pressure [Right Arm] 149/79 H Blood Pressure Mean [Right Arm] 102 Blood Pressure Source Automatic Cuff Blood Pressure Position Sitting 02 Sat by Pulse Oximetry 98 Oxygen Delivery Method Room Air Room Air Medical Decision Narrative: 78-year-old with above history and physical he has a benign abdomen has no significant discomfort has 4 days of not having a bowel movement. Has not tried appropriate outpatient medications I discussed with him escalation of MiraLAX also prescribed Dulcolax as well as magnesium citrate and advised that he continue MiraLAX for several weeks. Advised to return with any significant worsening of his symptoms or refractory symptoms. Patient is agreeable to this plan no indication for any further workup for concerns for bowel obstruction etc. Critical Care Critical Care Time Critical Care Time: No
== END 2024-09-09 18:00 | disposition home or self-care (01) ==
PROVIDERS: Emergency Provider Student in an Organized Health Care Education/Training Program; PCP Nurse Practitioner Family
DX: K59.00 Constipation, unspecified (principal)
CPT/HCPCS: 99283

== ENCOUNTER 2024-12-15 17:41 | Emergency (ER) | payer MEDICARE, BC, SELFPAY ==
[2024-12-15] VITALS (8 sets, daily range): BP systolic 117–140; BP diastolic 63–74; PULSE 76–81; RESP 15–18; TEMP 36.6–36.8; O2SAT 98; BMI 21.4
[2024-12-15 18:02] LABS: Coronavirus 19, PCR Not Detected (NotDetected); Influenza A, PCR Not Detected (NotDetected); Influenza B, PCR Not Detected (NotDetected)
--- NOTE | 2024-12-15 18:26 | ED_ITS ---
Discharge Plan Disposition Patient Disposition: Home, Self-Care Condition: Good Prescriptions Prescriptions: New loperamide 2 mg capsule 2 mg PO Q6H PRN (Reason: loose stool) 5 Days Qty: 20 0RF Rx Instructions: Please take 4 mg initially, followed by 2 mg after each loose stool, maximum 16 mg/day ondansetron 4 mg tablet,disintegrating 4 mg PO Q6H PRN (Reason: nausea and vomiting) 5 Days Qty: 20 0RF No Action fenofibrate nanocrystallized [Tricor] 48 mg tablet 48 mg PO DAILY acetaminophen [Tylenol Extra Strength] 500 mg tablet 500 mg PO BID PRN (Reason: pain) gabapentin 600 mg tablet 600 mg PO TID Patient Comments: TAKE 1 TABLET BY MOUTH THREE TIMES DAILY omeprazole 40 mg capsule,delayed release(DR/EC) 40 mg PO DAILY difluprednate 0.05 % drops Eye-Both multivitamin tablet 1 tab PO QAM tamsulosin 0.4 mg capsule,extended release 24hr 0.4 mg PO DAILY aspirin [Adult Low Dose Aspirin] 81 mg tablet,delayed release (DR/EC) 81 mg PO DAILY fluticasone propionate [Flonase Allergy Relief] 50 mcg/actuation spray,suspension 50 mcg INTRANASAL DAILY finasteride 5 mg tablet 5 mg PO DAILY Qty: 90 clopidogrel [Plavix] 75 mg tablet 75 mg PO DAILY Qty: 30 11RF metoprolol succinate 25 mg tablet extended release 24 hr 12.5 mg PO BID Qty: 60 5RF pantoprazole 40 mg tablet,delayed release (DR/EC) 40 mg PO DAILY Qty: 30 5RF rosuvastatin [Crestor] 20 mg tablet 20 mg PO DAILY Qty: 30 5RF ondansetron 4 mg tablet,disintegrating 4 mg PO Q8H PRN (Reason: nausea and vomiting) 4 Days Qty: 12 0RF bisacodyl [Dulcolax (bisacodyl)] 10 mg suppository 10 mg MI DAILY 2 Days Qty: 12 0RF magnesium citrate Solution 300 ml PO HS PRN (Reason: constipation) 1 Days Qty: 296 0RF methocarbamol 500 mg tablet 500 mg PO BIDP PRN (Reason: Muscle Pain) Patient Comments: TAKE 1 TABLET BY MOUTH TWICE A DAY NEEDED FOR MUSCLE STRAIN oxybutynin chloride 10 mg tablet extended release 24hr 10 mg PO DAILY Patient Comments: TAKE 1 TABLET BY MOUTH EVERY DAY Referrals Follow up/Referrals: Erika Sesay [Primary Care Provider] - See instructions Activity Restrictions/Add. Instructions Additional Instructions/Restrictions: No emergent medical condition identified today your working diagnosis is likely a viral gastroenteritis. Please return with any significant worsening of abdominal pain inability to keep any fluids down high fevers or other concerns. Clinical Impressions Clinical Impression: Nausea vomiting and diarrhea Instructions Patient Instructions: DI for Diarrhea and Traveler's Diarrhea -- Adult, DI for Diarrhea and Traveler's Diarrhea -- Child, DI for Nausea -- Adult, DI for Nausea -- Child Print Language Print Language: Frisian Discharge ED Provider: Johnathan Baum General Adult HPI General Chief complaint: Nausea/Vomiting/Diarrhea Stated complaint: V/D,Chills Time Seen by Provider: 12/15/24 18:13 Mode of Arrival: Ambulatory Source of Information: Patient and Spouse Description of Symptoms (Recalled from ER Triage Doc. by RN): Pt presents for evaluation of n/v/d and chills x 1 day. Hx of sepsis due to UTI 1 year ago. History of Present Illness HPI narrative: Patient is a 79-year-old male presented with nausea vomiting and diarrhea. This started just a few hours ago but has had 8 episodes of the symptoms. States that he had a similar presentation in the past at which point he was diagnosed with sepsis ultimately had an NE and also was diagnosed with urinary tract infection. He denies any urinary symptoms no burning frequency urgency. No fevers but he has had some chills. States he was concerned that he may be becoming septic again. Denies any cough denies any other symptoms or positive sick contacts. Vomiting has been nonbloody nonbilious no hematochezia or melena. Related Data Home Medications ?Medication ?Instructions ?Recorded ?Confirmed multivitamin 1 tab PO QAM Supplement 10/22/17 12/10/23 tamsulosin 0.4 mg capsule 0.4 mg PO DAILY Urinary Retention 10/22/17 12/10/23 fenofibrate nanocrystallized 48 mg 48 mg PO DAILY Cholesterol 01/29/18 12/10/23 tablet (Tricor) acetaminophen 500 mg tablet 500 mg PO BID PRN pain 04/16/18 12/10/23 (Tylenol Extra Strength) aspirin 81 mg tablet,delayed 81 mg PO DAILY Heart Health 04/16/18 12/10/23 release (Adult Low Dose Aspirin) fluticasone propionate 50 50 mcg intranasal DAILY Allergies 04/16/18 12/10/23 mcg/actuation nasal spray,suspension (Flonase Allergy Relief) finasteride 5 mg tablet 5 mg PO DAILY Prostate #90 tabs 05/06/19 12/10/23 methocarbamol 500 mg tablet 500 mg PO BIDP PRN Muscle Pain 05/14/23 12/10/23 oxybutynin chloride 10 mg 10 mg PO DAILY Bladder Problems 05/14/23 12/10/23 tablet,extended release 24 hr difluprednate 0.05 % eye drops drp Eye-Both 12/10/23 12/10/23 gabapentin 600 mg tablet 600 mg PO TID 12/10/23 12/10/23 omeprazole 40 mg capsule,delayed 40 mg PO DAILY 12/10/23 12/10/23 release Previous Rx's ?Medication ?Instructions ?Recorded clopidogrel 75 mg tablet (Plavix) 75 mg PO DAILY Anti Platelet #30 05/24/23 tabs metoprolol succinate 25 mg 12.5 mg (1/2 x 25 mg) PO BID High 05/24/23 tablet,extended release 24 hr Blood Pressure #60 tabs pantoprazole 40 mg tablet,delayed 40 mg PO DAILY #30 tabs 05/24/23 release rosuvastatin 20 mg tablet (Crestor) 20 mg PO DAILY Cholesterol #30 tabs 05/24/23 ondansetron 4 mg disintegrating 4 mg PO Q8H PRN nausea and 01/19/24 tablet vomiting 4 days #12 tabs bisacodyl 10 mg rectal suppository 10 mg MI DAILY 2 days #12 ea 09/09/24 (Dulcolax (bisacodyl)) magnesium citrate 300 ml PO HS PRN constipation 1 09/09/24 day #296 mL loperamide 2 mg capsule 2 mg PO Q6H PRN loose stool 5 days 12/15/24 #20 caps ondansetron 4 mg disintegrating 4 mg PO Q6H PRN nausea and 12/15/24 tablet vomiting 5 days #20 tabs Allergies Allergy/AdvReac Type Severity Reaction Status Date / Time clarithromycin Allergy Unknown Verified 12/10/23 13:05 (CLARITHROMYCIN) morphine (MORPHINE) Allergy Unknown Verified 12/10/23 13:05 sulfamethoxazole (From Allergy Unknown Verified 12/10/23 13:05 BACTRIM) trimethoprim (From BACTRIM) Allergy Unknown Verified 12/10/23 13:05 [facility]END[facility] TO [facility] Disclaimer: The information contained in this section may have been updated after the patient was seen, as this information can be updated by other users. Medical History TIA (transient ischemic attack) History of heart attack Surgical History History of rotator cuff surgery History of prostate surgery History of colon resection Family History Other Family history of heart attack Social History Smoking Status: Never smoker second hand exposure: No alcohol intake: never substance use type: denies use current occupational status: employed Travel in the last 8 weeks: None household members: spouse housing: house caffeine: No Have you lived/traveled outside [place] in past 30 days?: No Contact w/someone who lives/traveled outside [place] past 30 days?: No Exposure to someone with infectious disease in past 14 days?: No Do you have a fever (greater than 100.4 F or 38 C)?: No Have you tested positive for COVID-19: No Exposed to someone with COVID-19 in past 14 days?: No Do you have a sore throat?: No Do you have a cough?: No Do you have any weakness?: No Do you have any diarrhea?: No Are you experiencing any unusual bleeding?: No Do you have any muscle aches/pain?: No Do you have any abdominal pain?: No Are you experiencing loss of taste or smell?: No Other Medical History Have you received the Flu Vaccine for this season: No Have you received the Pneumonia Vaccine: Yes ROS Obtained: Yes All systems reviewed & no additional complaints except as documented Physical Exam General General appearance: alert and in no apparent distress Respiratory Respiratory exam: Present normal lung sounds bilaterally; Absent respiratory distress Cardiovascular Cardiovascular exam: Present regular rate and normal rhythm Abdominal Exam Abdominal exam: Present soft; Absent distention or tenderness Neurological Exam Neurological exam: Present alert and oriented X3 Medical Decision Making Medical Records Screening: Per USPSTF and CDC recommendations, given the prevalence of disease in our region, it is our hospital?s policy to screen for HIV and viral Hepatitis for all patients aged 18 and over and those with ongoing risk factors. [place] Inquiry Pt receiving controlled substance: No Vital Signs: 12/15/24 17:49 12/15/24 18:00 12/15/24 18:30 Temperature 98.3 F Temperature Source Oral Pulse Rate [Right] 81 Respiratory Rate 18 15 Blood Pressure 140/70 117/64 Blood Pressure [Right Arm] 123/63 Blood Pressure Mean 88 Blood Pressure Mean [Right Arm] 83 Blood Pressure Source [Right Arm] Automatic Cuff Blood Pressure Position [Right Arm] Sitting 02 Sat by Pulse Oximetry 98 Oxygen Delivery Method Room Air 12/15/24 19:00 12/15/24 19:30 12/15/24 19:45 Temperature Temperature Source Pulse Rate [Right] Respiratory Rate 15 16 Blood Pressure 121/65 Blood Pressure [Right Arm] Blood Pressure Mean 83 Blood Pressure Mean [Right Arm] Blood Pressure Source [Right Arm] Blood Pressure Position [Right Arm] 02 Sat by Pulse Oximetry Oxygen Delivery Method 12/15/24 20:00 Temperature Temperature Source Pulse Rate [Right] Respiratory Rate Blood Pressure 130/74 Blood Pressure [Right Arm] Blood Pressure Mean 84 Blood Pressure Mean [Right Arm] Blood Pressure Source [Right Arm] Blood Pressure Position [Right Arm] 02 Sat by Pulse Oximetry Oxygen Delivery Method Lab Data Lab results reviewed: Yes I reviewed the patient's lab results. Lab Results 12/15/24 17:51: SARS-CoV-2 (PCR) Not detected, Influenza A Untype (PCR) Not detected, Influenza Type B (PCR) Not detected 12/15/24 18:08: WBC 12.7 H, RBC 5.07, Hgb 15.1, Hct 44.7, MCV 88.2, MCH 29.8, MCHC 33.8, RDW 12.6, Plt Count 219, MPV 10.6 H, Neut % (Auto) 95.2 H, Lymph % (Auto) 1.0 L, [place] % (Auto) 2.3, Eos % (Auto) 0.7, Baso % (Auto) 0.3, Neut # (Auto) 12.0 H, Lymph # (Auto) 0.1 L, [place] # (Auto) 0.3, Eos # (Auto) 0.1, Baso # (Auto) 0.0, Total Counted 100, Neutrophils % (Manual) 91 H, Band Neutrophils % 1, Lymphocytes % (Manual) 3 L, Monocytes % (Manual) 3, Eosinophils % (Manual) 2, Platelet Estimate Normal, RBC Morphology Normal, Sodium 138, Potassium 4.2, Chloride 103, Carbon Dioxide 20 L, Anion Gap 19.2 H, BUN 19, Creatinine 1.00, Estimated Creat Clear 73, Estimated GFR 72, Est GFR ( Amer) 88, Glucose 115 H, Lactate 1.6, Calcium 9.2, Total Bilirubin 0.9, AST 28, ALT 20, Alkaline Phosphatase 62, Troponin I < 0.01, Total Protein 6.9, Albumin 4.3, Globulin 2.6, Albumin/Globulin Ratio 1.7, Lipase 56, HCV Ab DEV w/Rflx PCR Qn Negative, HIV Ag/Ab Combo Qual Negative 12/15/24 18:08 12/15/24 18:08 Orders (Tests/Meds): ED MEDICATIONS Discontinued Medications Generic Name Dose Route Start Last Admin Trade Name Freq PRN Reason Stop Dose Admin Lactated Ringer's 1,000 mls @ 999 mls/hr 12/15/24 18:30 12/15/24 18:33 Lactated Ringer's 1000 Ml Bag IV 12/15/24 19:30 999 mls/hr .Q1H1M YESENIA Administration Ondansetron HCl 4 mg 12/15/24 18:22 12/15/24 18:33 Ondansetron 4mg/2ml Vial IV 12/15/24 18:23 4 mg ONCE ONE Administration ORDERS Category Date Time Status CBC w/Auto Diff [Complete Blood Count Auto Diff] Stat Lab 12/15/24 18:08 Completed CMP [Comprehensive Metabolic Panel] Stat Lab 12/15/24 18:08 Completed HIV Combo Stat Lab 12/15/24 18:08 Completed Hepatitis C Ab Qual. W/ RFX Stat Lab 12/15/24 18:08 Completed Lactic Acid Stat Lab 12/15/24 18:08 Completed Lipase Stat Lab 12/15/24 18:08 Completed Rapid PCR Covid and Flu A/B Stat Lab 12/15/24 17:51 Completed Trop I [Troponin I] Stat Lab 12/15/24 18:08 Completed Troponin I Q3H Lab 12/16/24 00:30 Ordered Blood Culture Stat Micro 12/15/24 19:39 Received Medical Decision Narrative: Patient is an afebrile nontoxic well-appearing gentleman with normal vital signs including normal heart rate. Clinically have low suspicion for sepsis. He has no urinary symptoms is a good historian will not get a urinalysis at the moment. Has a benign abdominal exam is no abdominal pain from historical standpoint has no tenderness. This is most likely viral gastroenteritis will give IV fluids and IV Zofran and check basic blood work and reassess. Given the fact that he has had some chills blood cultures have been sent but I think bacteremia is low likelihood. Reassessment 9:40 PM serial abdominal exams are benign patient continues to have normal vitals no evidence of sepsis has a mild leukocytosis but no other sirs criteria noted. This not consistent with serious bacterial infection nor intra- abdominal pathology that would require surgical intervention. Patient does have a mild elevation anion gap and bicarb is 20 with likely from mild dehydration. Again patient felt much better after IV fluids. And Zofran. Zofran and loperamide sent to his pharmacy return precautions emphasized patient was discharged in improved and stable condition. Critical Care Critical Care Time Critical Care Time: No
[2024-12-15 18:32] LABS: Basophils % 0.3 % (0.1-2.0); Eosinophils # 0.1 K/mm3 (0.0-0.4); Eosinophils % 0.7 % (0.1-12.0); Hematocrit 44.7 % (42.0-52.0); Hemoglobin 15.1 g/dL (14.1-18.0); Lymphocytes # 0.1 K/mm3 (0.7-4.5); Mean Corpuscular HGB Conc 33.8 g/dL (31.8-35.4); Mean Corpuscular Hemoglobin 29.8 pg (27.0-31.2); Mean Corpuscular Volume 88.2 fl (80-94); Mean Platelet Volume 10.6 fl (7.4-10.4); Monocytes # 0.3 K/mm3 (0.1-1.0); Monocytes % 2.3 % (1.7-9.3); Neutrophils % 95.2 % (37.0-80.0); Nucleated Red Blood Cells # 0 10^3/uL; Nucleated Red Blood Cells % 0 %; Platelet Count 219 K/mm3 (142-424); Red Blood Count 5.07 M/mm3 (4.60-6.20); Red Cell Distribution Width 12.6 % (11.5-17.5); Red Cell Distribution Width-SD 40.1 fL; White Blood Count 12.7 K/mm3 (4.8-10.8)
[2024-12-15] MEDS: LACTATED RINGERS 1000ML 1,000 ML 999 ML IV (18:33)
[2024-12-15] MEDS: ONDANSETRON 4MG/2ML VIAL 4 MG IV (18:33)
[2024-12-15 18:35] LABS: MANUAL DIFFERENTIAL MANUAL DIFFERENTIAL (MANUAL DIFF)
--- NOTE | 2024-12-15 18:36 | PC.NURSE ---
I rounded on the pt and took him a warm blanket for comfort. no needs voiced. no new complaints. call hardin in reach.
[2024-12-15 18:58] LABS: Lactic Acid 1.6 mmol/L (0.7-2.1)
[2024-12-15 19:01] LABS: Alanine Aminotransferase 20 U/L (12-78); Albumin Level 4.3 g/dl (3.5-5.0); Albumin/Globulin Ratio 1.7 (1.1-1.8); Alkaline Phosphatase 62 U/L (38-126); Anion Gap 19.2 mEq/L (5-15); Aspartate Amino Transferase 28 U/L (17-59); Bilirubin,Total 0.9 mg/dl (0.2-1.3); Blood Urea Nitrogen 19 mg/dl (9-20); Calcium 9.2 mg/dl (8.4-10.2); Carbon Dioxide 20 mmol/L (22.0-30.0); Chloride 103 mmol/L (98-107); Creatinine Clearance Estimated 73 mL/min (50-200); Estimated Glomerular Filt Rate 72 ml/min (>60); GFR (African American) 88 ML/MIN (>60); Globulin 2.6 g/dL (1.3-3.2); Glucose 115 mg/dl (74-100); Lipase 56 U/L (23-300); Potassium 4.2 mmoL/L (3.5-5.1); Sodium 138 mmol/L (136-145); Total Protein,Serum 6.9 g/dl (6.3-8.2)
[2024-12-15 19:27] LABS: Troponin I < 0.01 ng/ml (0.00-0.034)
[2024-12-15 19:48] LABS: HIV Combo NEGATIVE (Negative); Hepatitis C Ab Qual. W/ RFX NEGATIVE (Negative)
[2024-12-15 20:41] LABS: Band Neutrophils % 1 (0-8); Eosinophils % 2 % (0-3); Lymphocytes % 3 % (10-50); Monocytes % 3 % (2-9); Total Cells Counted 100
[2024-12-15 20:42] LABS: Neutrophils % 91 % (42-76); Platelet Estimate Normal; RBC Morphology Normal
--- NOTE | 2024-12-15 22:12 | PC.NURSE ---
IV catheter removed. catheter tip intact, bleeding controlled.
== END 2024-12-15 22:12 | disposition home or self-care (01) ==
PROVIDERS: Emergency Provider Student in an Organized Health Care Education/Training Program; PCP Nurse Practitioner Family
DX: R11.2 Nausea with vomiting, unspecified (principal); R19.7 Diarrhea, unspecified; R68.83 Chills (without fever); Z11.59 Encounter for screening for other viral diseases; Z11.4 Encounter for screening for human immunodeficiency virus [HIV]
CPT/HCPCS: 80053; 83605; 83690; 84484; 85007; 85025; 85027; 86803; 87040; 87389; 87636; 96361; 96374; 99284; J2405; J7120